=== PATIENT | male | born 1975 | race Caucasian/White ===

== ENCOUNTER 2022-03-23 02:38 | Emergency (ER) | payer MEDICAID, SELFPAY ==
--- OUTSIDE RECORDS SUMMARY | 2022-03-23 03:27 | XMS_ITS | Continuity of Care Document ---
:1975 Author Organization [facility] Address [address] [place] [address]- Care Team Providers Name Role Phone Rory BARFIELD, Jenny Primary Care Physician Encounter [facility] [place] Date(s): 07/05/20 - 07/06/[address] [address]- Encounter Diagnosis Chest pain (Final) - 07/05/20 Discharge Disposition: A-D/C Home Attending Physician: Chyna Syed DO Admitting Physician: Chyna Syed DO Referring Physician: Not on Staff, Referring MD Allergies, Adverse Reactions, Alerts Substance Reaction Severity Status NKA Active Medications Suboxone 8 mg-2 mg sublingual film Sublingual, Daily, 0 Refills, Maintenance, 03/01/19 16:42:26 EDT Start Date: 03/01/19 Status: Ordered Results Orders for Microbiology Reports Name Date Blood Culture 07/05/20 Blood Culture 07/05/20 Blood Culture #2 07/05/20 Microbiology Reports TEST:Blood Culture STATUS:Unauthenticated BODY SITE: SOURCE:Blood COLLECTED DATE/TIME:07/05/20 7:25 PMBlood Culture SPECIMEN DESCRIPTION : BLOOD NO SITE SPECIAL REQUESTS : NONE CULTURE : NO GROWTH AFTER 24 HOURS REPORT STATUS : PRELIMINARY REPORT TEST:Blood Culture, Second Order STATUS:Unauthenticated BODY SITE: SOURCE:Blood COLLECTED DATE/TIME:07/05/20 6:20 PMBlood Culture, Second Order SPECIMEN DESCRIPTION : BLOOD LA SPECIAL REQUESTS : NONE CULTURE : NO GROWTH AFTER 24 HOURS REPORT STATUS : PRELIMINARY REPORT TEST:Blood Culture STATUS:Unauthenticated BODY SITE: SOURCE:Blood COLLECTED DATE/TIME:07/05/20 5:56 PMBlood Culture SPECIMEN DESCRIPTION : BLOOD RA SPECIAL REQUESTS : NONE CULTURE : NO GROWTH AFTER 24 HOURS REPORT STATUS : PRELIMINARY REPORT Radiology Reports Exam Date Time Procedure Performing Provider Status 07/05/20 6:32 PM Chest 2 Views Frontal and Lat Trudi Kirkland; Auth (Verified) Notes:(Chest 2 Views Frontal and Lat) Reason For Exam: Shortness of Breath, Fever;Other:RESULT: Chest 2 Views Frontal and Lat Chest 2 Views Frontal and Lat Hx of Present Illness: Left anterior chest pain with radiation to neck and left arm. Patient report onset of pain this morning. Patient reports paramedics arrived and ECG obtained. Patient declined transport to hospital.; Reason: Other:; Shortness of Breath, Fever; Clinical Question(s): Pneumonia COMPARISON: None. FINDINGS: LINES AND TUBES: None. LUNGS AND PLEURA: Clear lungs. Normal pulmonary vascularity. No pleural effusion. No pneumothorax. HEART, MEDIASTINUM AND MARIETTA: Heart is normal in size. Normal upper mediastinal and hilar contour. BONES AND SOFT TISSUES: No acute abnormality. IMPRESSION: No acute abnormality. WSN: [id number] Ordering Physician: Perez Rodas V Dictated By: Kashif Deleon MD Dictated Date/Time: 07/05/20 6:34 pm Reviewed By: Kashif Deleon MD Signed By: Kashif Deleon MD Signed Date/Time: 07/05/20 6:34 pm Transcribed By: ALIYA Transcribed Date/Time: 07/05/20 6:33 pm Vital Signs Most recent to oldest 1 2 3 [Reference Range]: Oxygen Saturation [94-100 %] 97 % 96 % 100 % (07/06/20 12:19 AM) (07/05/20 4:08 PM) (07/05/20 4: 03 PM) Pulse Rate [55-90 bpm] 48 bpm 58 bpm 70 bpm *L* (07/05/20 4:08 PM) (07/05/20 4:03 PM) (07/06/20 12:19 AM) Blood Pressure [90-138/55-84 114/72 mm Hg 142/82 mm Hg mm Hg] (07/06/20 12:19 AM) *H* (07/05/20 4:08 PM) Respiratory Rate [16-30 20 br/min 21 br/min 18 br/mi n br/min] (07/06/20 12:19 AM) (07/05/20 4:08 PM) (07/05/20 4: 03 PM) Temperature [96.8-100.4 DegF] 97.5 DegF 97.7 DegF (07/06/20 12:19 AM) (07/05/20 4:08 PM) Mode of Delivery (Oxygen) Room air Room air (07/06/20 12:19 AM) (07/05/20 4:08 PM) Blood pressure sites Arm, right (07/06/20 12:19 AM) Temperature Route Oral Oral (07/06/20 12:19 AM) (07/05/20 4:08 PM) Social History Social History Type Response Smoking Status Never (less than 100 in life time) entered on: 03/01/19 Sex
--- OUTSIDE RECORDS SUMMARY | 2022-03-23 03:27 | XMS_ITS | Continuity of Care Document ---
:1975 Author Organization [facility] Address [address] [place] [id number]- Care Team Providers Name Role Phone Rory BARFIELD, Jenny Primary Care Physician Encounter [facility] [place] Date(s): 07/11/20 - 07/11/[address] [address]- Encounter Diagnosis Opiate use (Final) - 07/11/20 Cocaine use (Final) - 07/11/20 Discharge Disposition: A-D/C Home Attending Physician: Abilio Turner MD Admitting Physician: Abilio Turner MD Referring Physician: Not on Staff, Referring MD Allergies, Adverse Reactions, Alerts Substance Reaction Severity Status NKA Active Medications Suboxone 8 mg-2 mg sublingual film Sublingual, Daily, 0 Refills, Maintenance, 03/01/19 16:42:26 EDT Start Date: 03/01/19 Status: Ordered Vital Signs Most recent to oldest 1 2 3 [Reference Range]: Oxygen Saturation [94-100 %] 97 % 95 % 99 % (07/11/20 1:08 PM) (07/11/20 10:35 AM) (07/11/20 9: 04 AM) Pulse Rate [55-90 bpm] 67 bpm 50 bpm 69 bpm (07/11/20 1:08 PM) *L* (07/11/20 9:04 AM) (07/11/20 10:35 AM) Blood Pressure [90-138/55-84 114/80 mm Hg 121/76 mm Hg 138 /74 mm Hg mm Hg] (07/11/20 1:08 PM) (07/11/20 10:35 AM) (07/11/20 9: 04 AM) Respiratory Rate [16-30 16 br/min 14 br/min 18 br/mi n br/min] (07/11/20 1:08 PM) *L* (07/11/20 9:04 AM) (07/11/20 10:35 AM) Temperature [96.8-100.4 DegF] 98.9 DegF (07/11/20 7:20 AM) Mode of Delivery (Oxygen) Room air Room air Room a ir (07/11/20 1:08 PM) (07/11/20 10:35 AM) (07/11/20 9: 04 AM) Blood pressure sites Arm, left Arm, left Arm, left (07/11/20 1:08 PM) (07/11/20 10:35 AM) (07/11/20 9: 04 AM) Temperature Route Oral (07/11/20 7:20 AM) Social History Social History Type Response Smoking Status Never (less than 100 in life time) entered on: 03/01/19 Sex
--- OUTSIDE RECORDS SUMMARY | 2022-03-23 03:27 | XMS_ITS | Continuity of Care Document ---
:1975 Author Organization [facility] Address [address] [place] [address]- Care Team Providers Name Role Phone Not on Staff, PCP Primary Care Physician Unavailable Encounter [facility] [place] Date(s): 12/05/20 - 12/06/[address] [address]- Discharge Disposition: A-D/C Longterm, Long Term, or Care Home Fac Attending Physician: Anand Moralez DO Admitting Physician: Anand Moralez DO Referring Physician: Not on Staff, Referring MD Allergies, Adverse Reactions, Alerts Substance Reaction Severity Status NKA Active Medications Suboxone 8 mg-2 mg sublingual film Sublingual, Daily, 0 Refills, Maintenance, 03/01/19 16:42:26 EDT Start Date: 03/01/19 Status: Ordered Results Radiology Reports Exam Date Time Procedure Performing Provider Status 12/05/20 11:40 PM Wrist Comp Min 3 Views Right Malvin Aguiar (Verified) Notes:(Wrist Comp Min 3 Views Right) Reason For Exam: Decreased ROMRESULT: Wrist Comp Min 3 Views Right Wrist Comp Min 3 Views Right Reason: Decreased ROM; Clinical Question(s): Fracture COMPARISON: None. FINDINGS: Healed deformity is seen of the fifth metacarpal distal metaphysis. Well- corticated ossific densities are seen on the dorsum of the wrist, likely sequela of prior trauma. No acute displaced fracture isseen. There is mild degenerative change of the first metacarpophalangeal and first interphalangeal joints. Mild dorsal soft tissue swelling is seen in the wrist. IMPRESSION: Mild dorsal soft tissue swelling in the wrist with no acute fracture. WSN: [id number] Ordering Physician: Deonna Mueller MD Dictated By: Scarlett Joseph MD Dictated Date/Time: 12/05/20 11:53 p Reviewed By: Scarlett Joseph MD Signed By: Scarlett Joseph MD Signed Date/Time: 12/05/20 11:53 pm Transcribed By: ALIYA Transcribed Date/Time: 12/05/20 11:52 pm Vital Signs Most recent to oldest 1 2 3 [Reference Range]: Oxygen Saturation [94-100 %] 100 % 97 % 100 % (12/06/20 9:17 PM) (12/06/20 5:59 PM) (12/06/20 2:4 8 PM) Pulse Rate [55-90 bpm] 87 bpm 53 bpm 50 bpm (12/06/20 9:17 PM) *L* *L* (12/06/20 5:59 PM) (12/06/20 2:48 PM) Blood Pressure [90-138/55-84 mm 121/87 mm Hg 126/88 mm Hg 122/77 mm Hg Hg] (12/06/20 9:17 PM) (12/06/20 5:59 PM) (12/06/20 2:4 8 PM) Respiratory Rate [16-30 br/min] 20 br/min 18 br/min 16 br/min (12/06/20 9:17 PM) (12/06/20 5:59 PM) (12/06/20 2:4 8 PM) Temperature [96.8-100.4 DegF] 98.7 DegF 97.6 DegF 97 .4 DegF (12/06/20 9:17 PM) (12/06/20 5:59 PM) (12/06/20 2:4 8 PM) Mode of Delivery (Oxygen) Room air Room air Room a ir (12/06/20 9:17 PM) (12/06/20 5:59 PM) (12/06/20 9:4 8 AM) Blood pressure sites Arm, left Arm, right Arm, right (12/06/20 9:17 PM) (12/06/20 5:59 PM) (12/06/20 2:4 8 PM) Temperature Route Oral Oral Oral (12/06/20 9:17 PM) (12/06/20 5:59 PM) (12/06/20 2:4 8 PM) Social History Social History Type Response Smoking Status Never (less than 100 in life time) entered on: 03/01/19 Sex
== END 2022-03-23 05:37 | disposition left against medical advice (07) ==
PROVIDERS: Emergency Provider Emergency Medicine
DX: Z04.9 Encounter for examination and observation for unspecified reason (principal)

== ENCOUNTER 2022-04-05 20:04 | Emergency (ER) | payer MEDICAID, SELFPAY ==
[2022-04-05 20:20] VITALS: BP 117/98; BP 143/91; PULSE 80; PULSE 95; RESP 12; TEMP 36.4; O2SAT 94; O2SAT 96; BMI 28.0
--- NOTE | 2022-04-05 20:26 | ED.GENADULT ---
HPI - General Adult General Chief complaint: Overdose Stated complaint: etoh Time Seen by Provider: 04/05/22 20:21 Source: patient Limitations: no limitations History of Present Illness HPI narrative: This is a 46-year-old male who alleges that he had pulled over in his car to make a phone call. Police found him to be intoxicated and he came into the hospital by ambulance. The patient admits having had a beer, also a 1 on 1 of cocaine and heroin. He denies any complaints. He denies any headache, chest pain, shortness of breath, abdominal pain, nausea vomiting. Related Data Previous Rx's Medication Instructions Recorded naloxone 4 mg/actuation nasal 4 mg intranasal Q2M PRN opioid 04/06/22 spray (Narcan) overdose #2 ea Allergies Allergy/AdvReac Type Severity Reaction Status Date / Time No Known Allergies Allergy Unverified 03/03/20 14:57 Review of Systems Constitutional: Constitutional: Reports as per HPI Eyes: Eyes: Reports no additional eye complaints ENT: Reports system reviewed and no additional complaints, except as documented Cardiovascular: Cardiovascular: Reports no additional cardiovascular complaints Respiratory: Respiratory: Reports no additional respiratory complaints Gastrointestinal: Gastrointestinal: Reports no additional gastrointestinal complaints [facility] Social History Social History Advance Directives: No Advance Directives Information Provided: No Physical Exam ED Vital Signs: Vital Signs - 24 hr 04/05/22 20:20 Temperature 97.5 F Pulse Rate 95 Respiratory Rate 12 Blood Pressure 143/91 H Pulse Oximetry 96 Oxygen Delivery Method Room Air BMI result Body Mass Index 28.0 Const Other: Patient initially mildly somnolent appearing but is readily arousable to voice, answers questions appropriately, makes eye contact. Pupils not pinpoint General: no acute distress Orientation/consciousness: patient oriented x3 HENMT Head: Yes normal to inspection General nose exam: Normal external nose present Mouth: moist mucous membranes Throat: Yes posterior oropharynx normal, Yes tonsils normal and Yes uvula midline Eyes Eyelids: Yes eyelids normal Conjunctivae: conjunctivae normal Pupils: Equal, round and reactive pupils present Neck Neck: Yes supple Resp Effort & Inspection: normal respiratory effort Auscultation: clear to auscultation bilaterally Cardio Rate: regular rate Rhythm: regular rhythm Heart sounds: S1 normal heart sound present, S2 normal heart sound present, no gallops, no murmurs and no rubs GI Inspection: No distended Palpation (GI): Soft to palpation and nontender Auscultation: normal bowel sounds Skin General skin exam: other (Warm and dry) Neuro General: patient oriented x3 and CN's II-XI intact bilaterally Cranial nerves: Yes Equal, round and reactive pupils present Extrem General: Yes no pedal edema Psych Affect: normal affect Attitude: cooperative Course Course Course Narrative: Patient was observed in the ED for about 4 hours. His vital signs remained stable. He had no evidence of respiratory depression. He was cooperative. He stated he fully able to call somebody for ride, or he can walk home. Patient is being prescribed Narcan, though he did not actually have any evidence of narcotic overdose, appears to have polysubstance abuse Discharge Plan Discharge Clinical Impression: Substance abuse Patient Disposition: Home, Self-Care Instructions: Polysubstance Abuse (ED) Additional Instructions: Refrain from mixing multiple substances such as cocaine, heroin, and alcohol, as the effects can be unpredictable, and can cause . Pursue treatment at an outpatient drug detox facility. Prescriptions: New naloxone [Narcan] 4 mg/actuation spray,non-aerosol 4 mg intranasal Q2M PRN (Reason: opioid overdose) Qty: 2 0RF Rx Instructions: spray 1 dose into ONE nostril; alternate nostrils w each dose until help arrives
== END 2022-04-05 20:40 | disposition home or self-care (01) ==
PROVIDERS: Emergency Provider Emergency Medicine
DX: T40.1X1A Poisoning by heroin, accidental (unintentional), initial encounter (principal); Y92.9 Unspecified place or not applicable; F14.10 Cocaine abuse, uncomplicated; Z71.51 Drug abuse counseling and surveillance of drug abuser
CPT/HCPCS: 99281

== ENCOUNTER 2022-04-07 19:30 | Emergency (ER) | payer MEDICAID, SELFPAY ==
[2022-04-07 19:41] VITALS: BP 138/80; PULSE 120; O2SAT 95
[2022-04-07 19:43] VITALS: BMI 28.0
[2022-04-07 19:53] VITALS: BP 139/94; PULSE 116; RESP 20; O2SAT 94
--- NOTE | 2022-04-07 19:53 | ED.GENADULT ---
HPI - General Adult General Chief complaint: ETOH/Substance Use Stated complaint: substance abuse/ ETOH Time Seen by Provider: 04/07/22 19:42 Source: patient and EMS Mode of arrival: EMS Limitations: no limitations History of Present Illness HPI narrative: This is a 46-year-old male presenting to the emergency department after using drugs and alcohol. Patient tells me he was pulled over by the police after he used heroin, cocaine and was drinking and driving and they told him to come into the emergency department for evaluation and treatment. Patient offers no medical complaints. He tells me he was just trying to get high, this was not a suicide attempt. He tells me he used 1 bag of heroin, injected. He denies any SI, HI. Denies tobacco. Denies visual, auditory and tactile hallucinations. Denies medical complaints at this time. Narcan not given Related Data Previous Rx's Medication Instructions Recorded naloxone 4 mg/actuation nasal 4 mg intranasal Q2M PRN opioid 04/06/22 spray (Narcan) overdose #2 ea Allergies Allergy/AdvReac Type Severity Reaction Status Date / Time No Known Allergies Allergy Unverified 03/03/20 14:57 Review of Systems Review of Systems: Constitutional : No Fever, No Chills ENT/Mouth : No sore throat, No Rhinorrhea Eyes: No Eye Pain, No Swelling, No Redness Cardiovascular : No Chest Pain, No SOB Respiratory : No Cough, No Sputum Gastrointestinal : No Nausea, No Vomiting, No Diarrhea, No abdominal Pain Genitourinary : No Dysuria, No Hematuria Musculoskeletal : No joint pain, No Myalgias, No Joint Swelling Skin : No Skin Lesions, No rash Neuro : No Weakness, No Numbness Psych : No Anxiety, No Depression, No SI/HI/AH/VH All other systems reviewed and are negative Yes all other systems are reviewed and are negative [facility]LY [facility] Past Medical History Attestation statement: The following information was validated with the patient. Source: old records reviewed and nursing notes reviewed Social History Social History Advance Directives: No Advance Directives Information Provided: No Physical Exam ED Vital Signs: Vital Signs - 24 hr 04/07/22 19:53 Pulse Rate 116 H Respiratory Rate 20 Blood Pressure 139/94 H Pulse Oximetry 94 Oxygen Delivery Method Room Air BMI result Body Mass Index 28.0 vss Appearance: Alert.? Oriented X3.? No acute distress.? Head: Normocephalic, atraumatic, no step-offs or deformities Eyes: Pupils equal, round and reactive to light.? ENT: Pharynx normal.? Neck: Normal inspection.? Neck supple.? CVS: Normal heart rate and rhythm.? Pulses normal.? Respiratory: No respiratory distress.? Breath sounds normal.? Abdomen: Soft and nontender.? Skin: Skin warm and dry.? Normal skin color.? Normal skin turgor.? Extremities: No lower extremity edema.? No calf ttp. 5/5 strength to bilateral upper and lower extremities Neuro: Oriented X 3.? No motor deficit.? No sensory deficit. CN 2-12 intact Course Reevaluation(s) Reevaluation #1: Patient refused urine, labs. I got informed by registration that patient left security called, patient wasnt found. Calling PD to ensure patient did not have an IV. Time: 20:22 Reevaluation #2: On phone with [employer] they will call action to see if patient had IV Time: 20:24 Medical Decision Making [facility] Narrative Medical decision making narrative: 1928 46 year old presents with polysubstance abuse, alcohol intoxication. Was pulled over by the police and advised to come in to seek help. Denies SI and HI. Physical examination benign. Patient awake, alert, oriented x4. Appears comfortable with stable vitals. Likely accidental drug overdose. Patient without medical complaints. At this time will put in a substance use disorder evaluation. Medical Records Medical records reviewed: Yes I reviewed the patient's medical records. Lab Data Lab results reviewed: Yes I reviewed the patient's lab results. Critical Care Time Critical Care Time Critical Care Time: No Discharge Plan Discharge Clinical Impression: Alcoholic intoxication, Polysubstance abuse Patient Disposition: Elopement Prescriptions: No Action naloxone [Narcan] 4 mg/actuation spray,non-aerosol 4 mg intranasal Q2M PRN (Reason: opioid overdose) Qty: 2 0RF Rx Instructions: spray 1 dose into ONE nostril; alternate nostrils w each dose until help arrives
--- OUTSIDE RECORDS SUMMARY | 2022-04-07 19:55 | XMS_ITS ---
:1975 Author Organization [facility] Address [address], [place] [id number] Care Team Providers Name Role Phone Jessica Valadez Unavailable Unavailable PROBLEMS Type Condition ICD9-CM Code QKR38-VA Code Onset Condition SNO MED Code Dates Status Problem Body mass index Z68.27 Active 1628 62720 (BMI) 27.0-27.9, adult Problem Homelessness Z59.0 Active 1172145 0 Problem Prediabetes R73.03 Active 45106919 2 Problem Opioid abuse with F11.120 Active 56 95925 intoxication, uncomplicated Problem Abnormal finding R79.9 Active 166 033255 of blood chemistry, unspecified Problem Cocaine abuse with F14.19 Active 4 94617584 unspecified cocaine-induced disorder Problem Hyperesthesia R20.3 Active 548237 09 Problem Paresthesia of R20.2 Active 40785 005 skin Problem Nicotine F17.220 Active 551005493 dependence, chewing tobacco, uncomplicated Problem Dysthymic disorder F34.1 Active 7 5142629 Problem Opioid abuse, F11.10 Active 524687 1 uncomplicated Problem Pain in right leg M79.604 Active 28 1718909 Problem Chronic viral B18.2 Active 714028 006 hepatitis C Problem Nonspecific R74.0 Active 31967770 2 elevation of levels of transaminase and lactic acid dehydrogenase [LDH] Problem Essential I10 03 October, Active 63037273 (primary) 2018 hypertension ALLERGIES No Known Allergies ENCOUNTERS Encounter Location Date Diagnosis [address] Jun, Other chest pain R07.89 ; [place], [place] Opioid abuse wit h 285923500 intoxication, uncomplicated F1 1.120 ; Encounter for sc reening for infectious a nd parasitic diseas es, unspecified Z11. 9 ; Immunization not carried out because of p atient refusal Z28.21 ; Nicotine dependence, chew ing tobacco, uncompl icated F17.220 and Home lessness Z59.[address] Jun, [place], [place] [id number] [address] Jun, [place], [place] [id number] [address] Jun, [place], [place] [id number] [address] Jun, [place], [place] [id number] [address] Jun, [place], [place] [id number] [facility] [address] [place] [address] May, Unspecified a bnormal [facility] findings in urine R82.90 [place], and [place] [id number] unspecified Z71. [address] May, Dysuri a R30.0 ; [place], [place] Immunization not carried [id number] out because of p atient refusal Z28.21 a nd Encounter for sc reening for infectious a nd parasitic diseas es, unspecified Z11. [address] Apr, [place], [place] [id number] [address] Feb, Encoun ter for general [place] adult medical ex amination [id number] without abnormal findings Z00.00 ; Opioid abuse, uncomplicated F1 1.10 ; Encounter for sc reening for infectious a nd parasitic diseas es, unspecified Z11. 9 ; Encounter for immunization Z23 ; Encounter for ge neral adult medical ex amination with abnormal fi ndings Z00.01 ; Encount er for screening for ma lignant neoplasm of pros sanford Z12.[address] for screening for di abetes mellitus Z13.[address] Feb, [place], [place] [id number] [facility] [address] [place] [address] Jan, Opioid abuse, [facility] uncomplicate d F11.10 and [place] [place] [facility] , unspecified [place] [id number] Z71.[address] 14 Jan, 2020 [place], [place] [id number] [address] 08 Nov, 2019 Gonoco ccal infection of [place] lower genitourin dillon [id number] tract, unspecifi ed A54.[address] Nov, [place], [place] [id number] [address] Nov, [place], [place] [id number] [address] October, High r isk heterosexual [place] behavior Z72.51 ; Opioid 521944046 abuse, uncomplic ated F11.10 and Chron ic viral hepatitis C B18. [address] October, [place] [id number] [address] Mar, [place] [id number] [facility] [address] [place] [address] 17 Feb, 2019 Hom[place] [id number] [address] Aug, [place] [id number] [address] Jul, Other fatigue R53.83 ; [place] Reyna Snoring R06.83 ; Nicotine 144414639 dependence, chew ing tobacco, uncompl icated F17.220 ; Immuni zation not carried out because of patient refus al Z28.21 ; Other polyuria R35.8 ; Chronic viral he patitis C B18.2 ; Shortnes s of breath R06.02 an d Dysthymic disord er F34.[address] Jul, [place] [id number] [address] Jun, [place] [id number] [address] Apr, [place] [id number] [address] Apr, [place] [id number] [address] Apr, [place] [id number] [address] Apr, Parest hesia of skin R20.2 [place] ; Encounter for general 140978[address] adult medical ex amination with abnormal fi ndings Z00.01 ; Localiz ed swelling, mass a nd lump, left lower limb R22.42 and Immunization not carried out ileana use of patient refusal Z28.[address] Mar, Locali zed edema R60.0 [place], [place] [id number] [address] 07 Feb, 2018 [place], [place] [id number] [address] Dec, [place], [place] [id number] [address] Nov, [place], [place] [id number] [address] Nov, [place], [place] [id number] [address] October, Opioid abuse, [place] uncomplicated F1 1.10 ; [address] Nonspecific elev ation of levels of transa minase and lactic acid dehydrogenase [L DH] R74.0 ; Chronic viral hepatitis C B18.2 and Enco unter for immunization Z23 [address] October, [place], [place] [id number] [address] October, Nonspe cific elevation of [place] levels of transa minase 66[address]1173 and lactic acid dehydrogenase [L DH] R74.[address] October, [place], [place] [id number] [address] October, Nonspe cific elevation of [place] levels of transa minase 589795200 and lactic acid dehydrogenase [L DH] R74.0 ; Chronic viral hepatitis C B18.2 ; Essent ial (primary) hypert ension I10 ; Encounter for immunization Z23 and Opioid abuse, uncomplicated F1 1.[address] Aug, [place], [place] [id number] [address] May, [place], [place] [id number] [address] May, Nonspe cific elevation of [place] levels of transa minase 474760997 and lactic acid dehydrogenase [L DH] R74.0 and Chronic nick l hepatitis C B18. [address] May, [place], [place] [id number] [address] May, Pain i n right leg M79.604 [place] ; Chronic viral hepatitis 194919766 C B18.2 ; Nonspe cific elevation of lev els of transaminase and lactic acid dehydrogena se [LDH] R74.0 ; Elevated blood-pressure r eading, without diagnosi s of hypertension R03 .0 ; Opioid abuse, uncomplicated F1 1.10 and Cocaine abuse wi th unspecified cocaine-induced disorder F14.[address] Nov, Encoun ter for general [place], [place] adult medical ex amination [phone] with abnormal fi ndings Z00.01 ; Hyperes thesia R20.3 ; Opioid a buse, uncomplicated F1 1.10 ; Abnormal finding of blood chemistry, unspe cified R79.9 ; Encounte r for immunization Z23 and Nicotine depende nce, chewing tobacco, uncomplicated F1 7.[address] October, Unspec ified viral [place] hepatitis C with out [id number] hepatic coma B19 .20 ; Nicotine depende nce, chewing tobacco, uncomplicated F1 7.220 and Opioid abuse, uncomplicated F1 1.10 IMMUNIZATIONS Vaccine Route Administration Date Status Tdap IM Intramuscular Mar 16, 2020 Administered ceftriaxone 250 mg IM IM Intramuscular November 23, 2019 Administe red PPSV 23 Unknown Feb 27, 2017 Administered Hepatitis B (20 or more) IM Intramuscular November 13, 2017 Admini stered Hepatitis A IM Intramuscular October 17, 2017 Administered Prevnar 13 Unknown Feb 27, 2017 Administered ceftriaxone 250 mg IM IM Intramuscular Jun 02, 2020 Administe red Hepatitis B (20 or more) IM Intramuscular Jan 30, 2017 Admini stered Hepatitis A Unknown Jan 30, 2017 Administered Hepatitis B (20 or more) IM Intramuscular November 15, 2016 Admini stered SOCIAL HISTORY Qualifiers Date Former Smoker REASON FOR REFERRAL Reason Rt arm numbess I called the pt to follow up and see what was the best time for t he appt. as this referal was done in November. Per the p t he is better and would NOT like the referral for NO ES at this time... 06/07/17 GARCIA Declines referral at this time/GK 06/07/17 Referral Organization [facility] Referring Provider First Name Jessica Referring Provider Last Name Rory Referring Provider Specialty Family Practice Referring Provider Referring Provider email [email or web address] Referred Provider [facility] Reason [facility] Abd U/S [address] [place], [place] [phone] fax: [phone] req faxed/ Pt aware of appt, NPO after MN and rm [phone] [place] did he go to this appt? Pt n o show on 06/26/17 //SOLOMON Melton---Needs new appt f or abd U/S/GK (Details)nothing to eat or drink after midnight appt booked 09/20/14 at 11:00a m order fax [phone] Pt is aware of appt details// Referral Organization [facility] Referring Provider First Name Jessica Referring Provider Last Name Rory Referring Provider Specialty Family Practice Referring Provider Referring Provider email [email or web address] Referred Provider [facility], Radiology Referred Provider Specialty Radiology Referral Appointment Date 2017-09-20 Reason [facility] Liver clinic [address] [place] LT use of Testosterone/Opiates. + hx u ntreatd hep C with LFTs AST: 170/ALT: 270. Please ev aluate and treat Appt booked for pt on 02/26/18 at 12:[address] Plata at [address] [place] Notes f ax to [phone] Sent a letter out to pt adress we d id not get a hols of pt by phone and left several voice mails// Referral Organization [facility] Referring Provider First Name Jessica Referring Provider Last Name Rory Referring Provider Specialty Family Practice Referring Provider Referring Provider email [email or web address] Referred Provider [facility], Liver Clinic Referred Provider Specialty Gastroenterology Referral Appointment Date 2018-02-26 Reason [facility] jd johnson stating pt is going 01/02/18 and they were looking for a mass health referral Referred Provider , [facility] Referred Provider Specialty Physical Medicine and Reha bilitation Referral Appointment Date 2018-01-06 Reason Sleep apea testing [place] S leepiness Scale : score 24 Fax all paper work to waiting on notes to get reviewed to then get appt details//SOLOMON Called for the second time and no a ppt has been made yet they will work on it today 9 Appt booked for 10/06/18 at 4:15pm they stated pt is aware they wont book with speaking to pt//KL Pt did s how and has a sleep study on 10/19 notes requested on //SOLOMON notes in alvaro folder. Referral Organization [facility] Referring Provider First Name Jessica Referring Provider Last Name Rory Referring Provider Specialty Family Practice Referring Provider Referring Provider email [email or web address] Referred Provider Sleep Medicine Services, [facility]. Referral Appointment Date 2018-10-06 FUNCTIONAL STATUS PLAN OF CARE Activity Details Referral Rt arm numbess I called the pt to follow up and see what was the best time for the appt. as this r eferal was done in November. Per the pt he is better and would NOT like th e referral for NOES at this time... 06/07/17 JF Declines referral at this time/ 06/07/17 , [facility] New Referral 2017-09-20, [facility] Ab d U/S [address] [place], [place] [phone] fax: [phone] req faxed/ Pt aware of appt, NPO after MN and rm 160 175 [facility] did h e go to this appt? Pt no show on 06/26/17 //SOLOMON Melton---Needs new a ppt for abd U/S/GK (Details)nothing to eat or drink after midnig ht appt booked 09/20/14 at 11:00am order fax [phone] Pt is aware of a ppt details//SOLOMON, Radiology [facility] Referral 2018-02-26, [facility] Liver clinic [address] [facility].[place] LT use of Testosterone/Opiates. + hx u ntreatd hep C with LFTs AST: 170/ALT: 270. Please evaluate and treat Ap pt booked for pt on 02/26/18 at 12:[address] Plata at [address] [place] Notes fax to [phone] Sent a letter out to pt adress we did not get a hols of pt by phone and left several voice mails//SOLOMON, Liver Clini c [facility] Referral 2018-01-06, [facility] called stating pt is going 01/02/18 and they were looking for a mass health referral, [facility] Referral 2018-10-06, Sleep apea testi ng [place] Sleepiness Scale : score 24 Fax all paper work to [phone] waiting on notes to get reviewed to then get appt details//KL Called for the second time and no appt has been made yet they will work on i t today 08/26/18 Appt booked for 10/06/18 at 4:15pm they stated pt is kianna re they wont book with speaking to pt//KL Pt did show and has a sleep study on 10/19 notes requested on 10/07/18//SOLOMON notes in alvaro folder., [facility]. Sleep Medicine Services Future Test URINALYSIS [id number] Pending Test CHLAMYDIA / GC DNA W RFLX Pending Test CR Femur =>2 Views LT Pending Test A1c - [facility] Pending Test Sed Rate Pending Test B12 level - [facility] Pending Test Uric acid Pending Test Rheumatoid factor Pending Test X ray : Spines, cervical Pending Test LO (Antinuclear Antibody) S creen -[facility] Pending Test Folic Acid - [facility] Pending Test Hep C viral load - [facility] Pending Test Quantiferon Gold VITAL SIGNS Height 68 in 2020-07-13 Weight 180 lbs 2020-07-13 BMI 27.37 kg/m2 2020-07-13 Oximetry 99 2020-07-13 Temperature 97.7 degrees Fahrenheit 2020-07-13 Blood pressure systolic 134 2020-07-13 Blood pressure diastolic 79 2020-07-13 MEDICATIONS Medication Instructions Dosage Frequency Start End Duration Statu s Date Date hydroCHLOROthiazide orally once a 1 cap(s) 24h October, da y(s) Not-Taki 12.5 mg day 2017 ng Suboxone 8 mg-2 mg sublingually 1 24h Active once a day film(s) Narcan 4 mg/0.1 mL intranasally 4 mg 06 May, 1 dose(s ) Active once 2018 PROCEDURES Procedure Date Ordered Result Body Site CLINIC VST/ENCOUNTER ALL-INCLUSIVE October 31, 2016 CLINIC VST/ENCOUNTER ALL-INCLUSIVE Mar 16, 2020 CLINIC VST/ENCOUNTER ALL-INCLUSIVE Mar 19, 2018 CLINIC VST/ENCOUNTER ALL-INCLUSIVE November 13, 2017 NFAC (RN, AUDITOR/QUALITY, PA)HC PRO PHONE CALL 11-20 MIN Feb 03, 2020 Hepatitis B (20 or more) November 13, 2017 THER/PROPH/DIAG INJ, SC/IM November 23, 2019 VENIPUNCT, ROUTINE* Jun 07, 2017 IM 5OOMG ROCEPHIN Jun 02, 2020 NFAC (RN, AUDITOR/QUALITY, PA)HC PRO PHONE CALL 5-10 MIN Jun 03, 2020 CLINIC VST/ENCOUNTER ALL-INCLUSIVE November 15, 2016 VENIPUNCT, ROUTINE* Apr 17, 2018 MEASURE BLOOD OXYGEN LEVEL October 31, 2016 CLINIC VST/ENCOUNTER ALL-INCLUSIVE Aug 06, 2018 VENIPUNCT, ROUTINE* November 12, 2019 TOBACCO USE, SMOKING, ASSESS Aug 06, 2018 TDAP VACCINE Mar 16, 2020 CLINIC VST/ENCOUNTER ALL-INCLUSIVE Jun 02, 2020 THER/PROPH/DIAG INJ, SC/IM Jun 02, 2020 CLINIC VST/ENCOUNTER ALL-INCLUSIVE November 23, 2019 Obsolete : IMMUNIZATION ADMIN November 15, 2016 OCCULT BLOOD, FECES, SINGLE Aug 06, 2018 TOBACCO USE, NON-SMOKING Aug 06, 2018 CLINIC VST/ENCOUNTER ALL-INCLUSIVE Jul 13, 2020 VENIPUNCT, ROUTINE* Mar 16, 2020 VENIPUNCT, ROUTINE* Jun 02, 2020 CURRENT TOBACCO SMOKER November 15, 2016 SPECIMEN HANDLING Mar 16, 2020 Comprehensive Metabolic Panel October 31, 2016 SPECIMEN HANDLING November 13, 2017 SPECIMEN HANDLING Aug 06, 2018 VENIPUNCT, ROUTINE* Aug 06, 2018 TOBACCO USE, SMOKING, ASSESS November 15, 2016 IM 5OOMG ROCEPHIN November 23, 2019 ADMIN SINGLE VACC November 13, 2017 CURRENT TOBACCO SMOKER October 31, 2016 CLINIC VST/ENCOUNTER ALL-INCLUSIVE Apr 17, 2018 VENIPUNCT, ROUTINE* November 13, 2017 CLINIC VST/ENCOUNTER ALL-INCLUSIVE November 12, 2019 CLINIC VST/ENCOUNTER ALL-INCLUSIVE October 17, 2017 SPECIMEN HANDLING Jun 02, 2020 CLINIC VST/ENCOUNTER ALL-INCLUSIVE Jun 06, 2017 Hepatitis A October 17, 2017 TOBACCO USE, SMOKING, ASSESS October 31, 2016 SPECIMEN HANDLING November 12, 2019 ADMIN SINGLE VACC Mar 16, 2020 PRSC RX ORAL NONCHEMOTHAPEUTIC NOS Jun 02, 2020 SPECIMEN HANDLING Apr 17, 2018 Hepatitis B November 15, 2016 ADMIN SINGLE VACC October 17, 2017 SPECIMEN HANDLING Jun 07, 2017 RESULTS Name Result Date Reference Range CHLAMYDIA DNA URINE 2020-06-02 CHLAMYDIA DNA URINE NEGATIVE NEGATIVE GC DNA URINE 2020-06-02 GC DNA URINE POSITIVE NEGATIVE HIV 1 AND 2 ANTIBODY SCREEN 2020-06-02 HIV 1 AND 2 SCREEN NEGATIVE NEGATIVE TREPONEMAL AB 2020-06-02 TREPONEMAL AB NEGATIVE NEGATIVE TRICHOMONAS 2020-06-02 TRICHOMONAS NONE SEEN NEGATIVE URINALYSIS 2020-06-02 BACTERIA, URINE LIGHT NEGATIVE WBC, URINE 158 0-4 BILIRUBIN, URINE NEGATIVE NEGATIVE BLOOD, URINE NEGATIVE NEGATIVE HYALINE CAST, URINE 10 0-3 EPITH CELLS, URINE 1 0-60 GLUCOSE, (UA) NEGATIVE NEGATIVE KETONE, URINE NEGATIVE NEGATIVE LEUKOCYTE ESTERASE, URINE MODERATE NEGATI VE NITRITE, URINE NEGATIVE NEGATIVE PH, URINE 7.0 5.0-8.0 PROTEIN, URINE TRACE <= TRACE RBC, URINE 4 0-4 SPECIFIC GRAVITY, URINE 1.024 1.003-1. 030 UROBILINOGEN, URINE 1.0 0.2-1.0 URINE CULTURE 2020-06-02 URINE CULTURE No growth PROSTATIC SPECIFIC ANTIGEN 2020-03-16 PROSTATIC SPECIFIC ANTIGEN 0.4 0.0-4 .0 GLYCOHEMOGLOBIN PROFILE 2020-03-16 ESTIMATED AVERAGE GLUCOSE 117 GLYCATED HEMOGLOBIN A1C 5.7 <6.5 CBC 2020-03-16 HEMATOCRIT 51.8 42-54 HEMOGLOBIN 16.6 13.5-17.5 MCH 30.0 27-32 MCHC 32.0 32-37 MCV 93.5 79-98 MEAN PLATELET VOLUME 11.3 7-11 NRBC # AUTO 0.00 <0.1 NRBC % AUTO 0.0 <1 PLT COUNT 158 130-400 RBC 5.5 4.5-5.5 RDW 13.5 11-15 WBC 4.6 4.8-10.8 COMPREHENSIVE METABOLIC PANEL 2020-03-16 ALBUMIN 4.1 3.2-5.0 ALK PHOS 61 42-121 SGPT 50 10-60 ANION GAP 7 3-11 SGOT 40 10-42 BILI,TOTAL 0.6 0.0-1.4 BUN 17 5-25 CALCIUM 9.1 8.5-10.5 CHLORIDE 105 96-110 CO2 25 21-32 CREAT 1.11 0.7-1.3 GLOMERULAR FILTRATION RATE > 60 GLUCOSE 87 70-100 POTASSIUM 3.9 3.5-5.5 SODIUM 137 135-145 TOTAL PROTEIN 7.8 6.0-8.0 HCV VIRAL LOAD 2020-03-16 HCV VIRAL LOAD QUAL Not detected NOT DETECT. TREPONEMAL AB 2019-11-12 TREPONEMAL AB NEGATIVE NEGATIVE URINE CULTURE 2019-11-12 URINE CULTURE No growth CHLAMYDIA DNA URINE 2019-11-12 CHLAMYDIA DNA URINE POSITIVE NEGATIVE GC DNA URINE 2019-11-12 GC DNA URINE POSITIVE NEGATIVE HEPATITIS C VIRUS SCREEN 2019-11-12 HEPATITIS C VIRUS SCREEN POSITIVE NEGATIV E HEPATITIS B SURFACE ANTIBODY 2019-11-12 HEPATITIS B SURFACE ANTIBODY POSITIVE NEG ATIVE HIV 1 AND 2 ANTIBODY SCREEN 2019-11-12 HIV 1 AND 2 SCREEN NEGATIVE NEGATIVE UA WITH CULTURE IF INDICATED 2019-11-12 BACTERIA, URINE NEGATIVE NEGATIVE BILIRUBIN, URINE NEGATIVE NEGATIVE BLOOD, URINE TRACE NEGATIVE HYALINE CAST, URINE 4 0-3 EPITH CELLS, URINE 1 0-60 GLUCOSE, (UA) NEGATIVE NEGATIVE KETONE, URINE NEGATIVE NEGATIVE LEUKOCYTE ESTERASE, URINE LARGE NEGATI VE NITRITE, URINE NEGATIVE NEGATIVE PH, URINE 8.0 5.0-8.0 PROTEIN, URINE 30 <= TRACE RBC, URINE 11 0-4 SPECIFIC GRAVITY, URINE 1.022 1.003-1. 030 UROBILINOGEN, URINE 1.0 0.2-1.0 WBC, URINE 516 0-4 [place] Sleepiness Scale 2018-08-07 FERRITIN 2018-08-06 FERRITIN 35 26-388 HCV VIRAL LOAD 2018-08-06 HCV VIRAL LOAD LOG < 1.08 <1.08 HCV VIRAL LOAD QUAL Detected NOT DETECT. HCV VIRAL LOAD QUANT < 12 <12 TSH CASCADE 2018-08-06 TSH CASCADE 1.51 0.40-4.00 [email or web address] 2018-08-06 GLYCOHEMOGLOBIN PROFILE 2018-08-06 ESTIMATED AVERAGE GLUCOSE 114 GLYCATED HEMOGLOBIN A1C 5.6 <6.5 EKG CBC 2018-08-06 HEMATOCRIT 50.8 42-54 HEMOGLOBIN 17.1 13.5-17.5 MCH 30.1 27-32 MCHC 33.7 32-37 MCV 89.4 79-98 MEAN PLATELET VOLUME 10.2 7-11 NRBC # AUTO 0.00 <0.1 NRBC % AUTO 0.0 <1 PLT COUNT 208 130-400 RBC 5.7 4.5-5.5 RDW 13.3 11-15 WBC 6.4 4.8-10.8 COMPREHENSIVE METABOLIC PANEL 2018-08-06 ALBUMIN 3.9 3.2-5.0 ALK PHOS 52 42-121 SGPT 34 10-60 ANION GAP 7 3-11 SGOT 32 10-42 BILI,TOTAL 0.6 0.0-1.4 BUN 14 5-25 CALCIUM 8.9 8.5-10.5 CHLORIDE 105 96-110 CO2 28 21-32 CREAT 1.07 0.7-1.3 GLOMERULAR FILTRATION RATE > 60 GLUCOSE 86 70-100 POTASSIUM 4.4 3.5-5.5 SODIUM 140 133-145 TOTAL PROTEIN 7.7 6.0-8.0 PPD outside facility 2018-06-19 [email or web address] 2018-04-19 Depression Screen PHQ9 Annual Depression 2018-04 screen Score CBC (H/H, RBC, INDICES, WBC, PLT) 2018-04-17 WHITE BLOOD CELL COUNT 4.8 3.8-10.8 RED BLOOD CELL COUNT 4.91 4.20-5.80 HEMOGLOBIN 14.2 13.2-17.1 HEMATOCRIT 42.3 38.5-50.0 MCV 86.2 80.0-100.0 MCH 28.9 27.0-33.0 MCHC 33.6 32.0-36.0 RDW 14.8 11.0-15.0 PLATELET COUNT 179 140-400 MPV 9.7 7.5-12.5 HEMOGLOBIN A1c 2018-04-17 HEMOGLOBIN A1c 5.4 <5.7 COMPREHENSIVE METABOLIC PANEL-[facility] 2018-04-17 GLUCOSE 107 65-99 UREA NITROGEN (BUN) 14 7-25 CREATININE 1.07 0.60-1.35 eGFR NON-AFR. BAHRAINI 86 > OR = 60 eGFR 99 > OR = 60 BUN/CREATININE RATIO NOT APPLICABLE 6-22 SODIUM 139 135-146 POTASSIUM 4.2 3.5-5.3 CHLORIDE 106 98-110 CARBON DIOXIDE 22 20-32 CALCIUM 9.4 8.6-10.3 PROTEIN, TOTAL 7.4 6.1-8.1 ALBUMIN 4.4 3.6-5.1 GLOBULIN 3.0 1.9-3.7 ALBUMIN/GLOBULIN RATIO 1.5 1.0-2.5 BILIRUBIN, TOTAL 0.5 0.2-1.2 ALKALINE PHOSPHATASE 50 40-115 AST 33 10-40 ALT 43 9-46 SED RATE BY MODIFIED [place] 2018-04-17 SED RATE BY MODIFIED [place] TNP HEPATITIS C INFECTED PATIENT AUTOIMMUNE PANEL LO SCREEN, IFA Negative Negative MITOCHONDRIAL AB SCREEN Negative Negative ACTIN (SMOOTH MUSCLE) ANTIBODY (IGG) <20 <20 LKM-1 ANTIBODY (IGG) <=20.0 <=20.0 SOLUBLE LIVER ANTIGEN (SLA) AUTOANTIBODY <20.1 0.0-20.0 COMPREHENSIVE METABOLIC PANEL-[facility] 2017-11-13 GLUCOSE 93 65-99 UREA NITROGEN (BUN) 18 7-25 CREATININE 0.88 0.60-1.35 eGFR NON-AFR. BAHRAINI 107 > OR = 60 eGFR 124 > OR = 60 BUN/CREATININE RATIO NOT APPLICABLE 6-22 SODIUM 136 135-146 POTASSIUM 4.5 3.5-5.3 CHLORIDE 105 98-110 CARBON DIOXIDE 19 20-31 CALCIUM 9.0 8.6-10.3 PROTEIN, TOTAL 6.9 6.1-8.1 ALBUMIN 4.1 3.6-5.1 GLOBULIN 2.8 1.9-3.7 ALBUMIN/GLOBULIN RATIO 1.5 1.0-2.5 BILIRUBIN, TOTAL 0.4 0.2-1.2 ALKALINE PHOSPHATASE 75 40-115 AST 170 10-40 ALT 270 9-46 GGT 2017-11-13 GGT 21 3-95 PROTHROMBIN TIME-INR 2017-11-13 PT 11.0 9.0-11.5 INR 1.1 TISSUE TRANSGLUTAMINASE AB, IGA 2017-11-13 TISSUE TRANSGLUTAMINASE AB, IGA 1 DRUG TOX MONITORING FENTANYL, QN, URINE Fentanyl 0.5 <0.5 Norfentanyl 4.0 <0.5 COMMENT DRUG ABUSE PANEL 10-50 + ETHANOL, NO 2017-11-13 CONFIRM AMPHETAMINES (1000 ng/mL SCREEN) NEGATIVE BARBITURATES NEGATIVE BENZODIAZEPINES NEGATIVE COCAINE METABOLITES NEGATIVE MARIJUANA METABOLITES (50 ng/mL SCREEN) NEGATIVE METHADONE NEGATIVE METHAQUALONE NEGATIVE OPIATES NEGATIVE PHENCYCLIDINE NEGATIVE PROPOXYPHENE NEGATIVE ALCOHOL, ETHYL (U) NEGATIVE PLEASE NOTE: COMMENT Ultrasound : Abdomen PPD outside facility 2017-01-17 CBC (H/H, RBC, INDICES, WBC, PLT) 2017-06-07 WHITE BLOOD CELL COUNT 4.7 3.8-10.8 RED BLOOD CELL COUNT 5.11 4.20-5.80 HEMOGLOBIN 16.4 13.2-17.1 HEMATOCRIT 48.8 38.5-50.0 MCV 95.4 80.0-100.0 MCH 32.1 27.0-33.0 MCHC 33.7 32.0-36.0 RDW 15.5 11.0-15.0 PLATELET COUNT 209 140-400 MPV 8.5 7.5-12.5 HEMOGLOBIN A1c 2017-06-07 HEMOGLOBIN A1c 4.8 <5.7 FSH AND LH 2017-06-07 FSH <0.7 1.6-8.0 LH <0.2 1.5-9.3 HIV 1/2 ANTIGEN/ANTIBODY,FOURTH GENERATION 06-07 W/RFL HIV AG/AB, 4TH GEN NON-REACTIVE NON-REACTIVE LIPID PANEL 2017-06-07 TRIGLYCERIDES 55 <150 CHOLESTEROL, TOTAL 187 <200 HDL CHOLESTEROL 35 >40 LDL-CHOLESTEROL 137 CHOL/HDLC RATIO 5.3 <5.0 NON HDL CHOLESTEROL 152 <130 COMPREHENSIVE METABOLIC PANEL-[facility] 2017-06-07 GLUCOSE 105 65-99 UREA NITROGEN (BUN) 15 7-25 CREATININE 1.03 0.60-1.35 eGFR NON-AFR. BAHRAINI 90 > OR = 60 eGFR 105 > OR = 60 BUN/CREATININE RATIO NOT APPLICABLE 6-22 SODIUM 139 135-146 POTASSIUM 4.5 3.5-5.3 CHLORIDE 105 98-110 CARBON DIOXIDE 21 20-31 CALCIUM 9.4 8.6-10.3 PROTEIN, TOTAL 7.3 6.1-8.1 ALBUMIN 4.2 3.6-5.1 GLOBULIN 3.1 1.9-3.7 ALBUMIN/GLOBULIN RATIO 1.4 1.0-2.5 BILIRUBIN, TOTAL 0.8 0.2-1.2 ALKALINE PHOSPHATASE 75 40-115 AST 122 10-40 ALT 262 9-46 TESTOSTERONE, TOTAL, MALES (ADULT), [place] 2017-05-18 2 TESTOSTERONE, TOTAL, MALES (ADULT), [place] >3000 250-827 FERRITIN 2017-06-07 FERRITIN 104 20-380 PSA, TOTAL WITH REFLEX TO PSA, FREE 2017-06-07 PSA, TOTAL 1.1 < OR = 4.0 PROLACTIN 2017-06-07 PROLACTIN 4.0 2.0-18.0 THYROID CASCADING REFLEX 2017-06-07 TSH 1.83 0.40-4.50 HEPATITIS C VIRAL RNA, QN REAL TIME PCR W/REFLS HCV RNA, QUANTITATIVE REAL TIME PCR 5.72 HCV RNA, QUANTITATIVE REAL TIME PCR [id number] HEPATITIS C VIRAL RNA W/ RFL NS5a DRUG 2017-05-18 2 RESIST HEPATITIS C VIRAL RNA GENOTYPE, LIPA(R) 1a HEPATITIS C VIRAL RNA SUZY 1 NS5a DRUG 2017-05-18 2 RESIST HCV NS5a SUBTYPE 1a DACLATASVIR RESISTANCE NOT PREDICTED LEDIPASVIR RESISTANCE NOT PREDICTED OMBITASVIR RESISTANCE NOT PREDICTED ELBASVIR RESISTANCE NOT PREDICTED VELPATASVIR RESISTANCE NOT PREDICTED LIVER FIBROSIS, FIBROTEST ACTITEST PANEL FIBROSIS SCORE FIBROSIS STAGE FIBROSIS INTERPRETATION NECROINFLAMMAT ACT SCORE NECROINFLAMMAT ACT GRADE NECROINFLAMMAT INTERP REFERENCE ID FOOTNOTE TOTAL BILIRUBIN GGT ALT ALPHA 2 MACROGLOBULIN HAPTOGLOBIN APOLIPOPROTEIN A1 Depression Screen PHQ9 Annual Depression screen Score CBC with Diff - [facility] WBC RBC HGB HCT MCV MCH MCHC RDW PLT MPV neutrophils Abs Neutrophils Lymphs Monos EOS BASOS Comprehensive Metabolic Panel - [facility] 2016-11 Creat AST 78 ALT 172 Ca GFR Thyroid Panel-cascade TSH Free T4 T3 Hep B Surface Antibody (anti-HBs IgG) Hep B Surf Ab Hep B Surface Antigen (HBsAg) Hep B Suft Ag Hep B Core Antibody (anti-HBc IgG) Hep B Core Ab viral load HCV Treponemal AB with reflex to RPR Trep Ab Hep C Genotype - [facility] Lipid Profile (fasting or non) - [facility] Total Chol Total Chol Trig Trig HDL HDL LDL Calc LDL Calc LDL LDL Hep A Tot AB - [facility] FibroSURE -HepC - [facility] REASON FOR VISIT Insurance Providers Formerly [facility] Health Member Patient Patient Patient Patient Patient Subscriber Subscriber Subscriber Group Insurance Plan Plan Plan Plan ID Relationship Address Phone Name Date of ID Name Date of No Type Insurance Insurance Insurance Coverage to Subscriber Address Phone Name Dates [place] [phone] [place] fl[place] Alicia 1975 [id number] Medicaid [id number] Medicaid [facility] [address] [facility] C3 [id number] [employer] [phone] [employer] self Ravin 1975 100 [id number] [facility] [id number] [place] [id number] Plan [facility] [id number] [facility] [phone] [facility] flaca Alicia 1975 [id number] [facility] [id number] [facility] Plan [id number] MEDICAL (GENERAL) HISTORY Type Description Date Medical History R upper arm nerve pain from injury 2011 Medical History Hep C dx 06/2016. Treated by [facility] GI Dr Zapata finished 8 weeks of rx. 04/2018 Medical History HTN Medical History Substance use: heroin, testosterone, HGH 10/2017. OD 11/10/17 -> Narcan Surgical History No Surgical history information Hospitalization History [facility] ER cellulitis reevaluation Hospitalization History [facility] ER, chest pain, IVDU, discharged to home 07/05/2020 Hospitalization History [facility] ER, Opiate use, cocaine use, dis charged to home 07/11/2020
--- NOTE | 2022-04-07 20:47 | PC.NURSE ---
patient triaged. restless and fidgety during assessment. able to answer questions appropriately. family member at the bedside. patient eloped while RN was in another patient room. GITA made known.
--- NOTE | 2022-04-07 22:19 | MHC.RECOVSUP ---
? Reason for consult:OPI o? Current location:ED22H? o? Identified substance use concern:? -? Support ? Intervention: ? Plan: ? Additional information:PT left the ED on his own, [facility] didn't speak with this pt.
== END 2022-04-07 20:36 | disposition left against medical advice (07) ==
PROVIDERS: Emergency Provider Emergency Medicine
DX: F19.10 Other psychoactive substance abuse, uncomplicated (principal); F10.220 Alcohol dependence with intoxication, uncomplicated; Y90.9 Presence of alcohol in blood, level not specified; Z79.899 Other long term (current) drug therapy
CPT/HCPCS: 99282

== ENCOUNTER 2023-07-23 22:29 | Emergency (ER) | payer MEDICAID, SELFPAY ==
[2023-07-23 22:35] VITALS: BP 145/92; PULSE 69; RESP 18; TEMP 37.2; O2SAT 94; BMI 27.8
== END 2023-07-24 02:35 | disposition left against medical advice (07) ==
PROVIDERS: Emergency Provider Emergency Medicine
DX: M54.6 Pain in thoracic spine (principal)
CPT/HCPCS: 99281

== ENCOUNTER 2023-08-14 05:51 | Emergency (ER) | payer MEDICAID, SELFPAY ==
--- NOTE | ~2023-08-14 | XR_ITS ---
EXAMINATION: XR THORACIC SPINE CLINICAL INFORMATION: Thoracic pain, T1-T3 COMPARISON: None available. TECHNIQUE: 3 views of the thoracic spine were obtained. FINDINGS: There is no fracture or bone destruction seen and the vertebral alignment is normal. There is no disc space narrowing. There is no abnormality of the paraspinal soft tissues. XR/XR thoracic spine 3V IMPRESSION: 1. Unremarkable plain radiographs of the thoracic spine. If there is strong clinical concern of dorsal spine abnormality, MRI would be a more sensitive means of evaluation.
[2023-08-14 05:55] VITALS: BP 152/93; PULSE 59; RESP 14; TEMP 36.7; O2SAT 97; BMI 27.3
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
[2023-08-14 07:36] LABS: MANUAL DIFF FLAG NO
[2023-08-14 07:40] LABS: Basophils Percent Auto 0.9 % (0-2); Eosinophils Absolute Auto 0.1 X10*3/uL (0.0-0.4); Hematocrit 50.3 % (42.0-52.0); Imm Gran Abs Auto 0.01 X10*3/uL (0.00-0.03); Imm Gran Pct Auto 0.2 % (0.0-0.4); Lymphocytes Absolute Auto 2.2 X10*3/uL (1.2-4.9); Lymphocytes Percent Auto 47.7 % (20-40); Mean Corpuscular HGB Conc 33.8 g/dl (31.0-36.0); Mean Corpuscular Hemoglobin 30.7 pg (27.0-33.0); Mean Corpuscular Volume 90.8 fL (80.0-98.0); Mean Platelet Volume 9.1 fL (9.4-12.4); Monocytes Absolute Auto 0.5 X10*3/uL (0.1-1.2); Monocytes Percent Auto 11.1 % (2-11); Neutrophils Absolute Auto 1.7 x10*3/uL (2.0-8.3); Neutrophils Percent Auto 37.1 % (45-73); Platelet Count 209 X10*3/uL (160-400); Red Blood Count 5.54 X10*6/uL (4.60-5.80); Red Cell Distribution Width 13.3 % (11.0-16.0); White Blood Count 4.6 X10*3/uL (4.8-10.8)
[2023-08-14 07:51] LABS: Alanine Aminotransferase 38 U/L (0-40); Albumin Level 4.2 g/dL (3.5-5.0); Alkaline Phosphatase 61 U/L (39-117); Anion Gap 14 (12-20); Aspartate Amino Transferase 37 U/L (5-37); Bilirubin Total 0.6 mg/dL (0.0-1.0); Blood Urea Nitrogen 20 mg/dL (9-16); C Reactive Protein 0.12 mg/dL (< or = 0.50); Calcium 9.3 mg/dL (8.4-10.2); Carbon Dioxide 24 mmol/L (22-29); Chloride 104 mmol/L (96-108); Creatinine Clr Calc Pharmacy 85.7; Estimated Glomerular Filt Rate > 60; Glucose Random 94 mg/dL (60-115); Potassium 4.7 mmol/L (3.3-5.1); Sodium 137 mmol/L (135-145); Total Protein 7.5 g/dL (6.5-8.0)
[2023-08-14 08:20] LABS: Erythrocyte Sedimentation Rate 1 MM/HR (0-15)
[2023-08-14] MEDS: Ketorolac Tromethamine 30 MG/ML VIAL IM (08:21)
[2023-08-14 08:31] VITALS: BP 161/92; PULSE 65; RESP 15; TEMP 36.8; O2SAT 100
--- NOTE | 2023-08-14 08:47 | PC.NURSE ---
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
== END 2023-08-14 08:47 | disposition home or self-care (01) ==
PROVIDERS: Physician Assistant; Emergency Provider Emergency Medicine
DX: M54.6 Pain in thoracic spine (principal)
CPT/HCPCS: 36415; 72072; 80053; 85025; 85652; 86140; 96372; 99283; 99284; J1885

== ENCOUNTER 2023-08-29 15:50 | Outpatient (REF) | payer MEDICAID, SELFPAY ==
[2023-08-29 18:17] LABS: Alanine Aminotransferase 37 U/L (0-40); Albumin Level 4.3 g/dL (3.5-5.0); Alkaline Phosphatase 60 U/L (39-117); Aspartate Amino Transferase 34 U/L (5-37); Bilirubin Direct 0.2 mg/dL (0.0-0.5); Bilirubin Total 0.8 mg/dL (0.0-1.0); Total Protein 7.6 g/dL (6.5-8.0)
[2023-08-30 04:50] LABS: HIV AB/AG Nonreactive (Nonreactive); HIV Num 1 0.05 S/CO (0.00-0.99); ~HepC Num1 13.47 S/CO (0.00-0.79); ~Hepatitis C Antibody Reactive (Nonreactive)
[2023-09-02 13:49] LABS: HCV Log PCR <1.18 NOT DETECTED Log IU/mL (NOT DETECTED); HepC Viral Load <15 NOT DETECTED IU/mL (NOT DETECTED)
== END 2023-08-29 15:51 | disposition home or self-care (01) ==
LOC: HO.HHCL 15:50
PROVIDERS: Visit Provider Family Medicine
DX: Z11.4 Encounter for screening for human immunodeficiency virus [HIV] (principal); F11.20 Opioid dependence, uncomplicated
CPT/HCPCS: 36415; 80076; 86803; 87389; 87522

== ENCOUNTER 2024-10-22 15:42 | Inpatient (IN) | payer MEDICAID, SELFPAY ==
--- NOTE | ~2024-10-22 | XR_ITS ---
CLINICAL HISTORY: hand lac ?FB Radiographs of the left hand, 3 views Comparison: None Findings: No acute fracture or dislocation. 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 Ossific fragments of the wrist measuring up to 5 mm, chronic trauma versus degenerative. Moderate degenerative change. Bone mineralization is normal. Soft tissue swelling /laceration. No radiopaque foreign body. Impression: No radiopaque foreign body. This document has been electronically signed by: Deedee Corona MD on 10/22/2024 17:16:50
--- NOTE | ~2024-10-22 | CT_ITS ---
CLINICAL HISTORY: hand infection Exam: CT left hand with IV contrast Comparison: None. Findings: No foreign body in the field of view. Edema in the left thenar eminence deep soft tissues with an associated 6 mm peripherally enhancing fluid collection consistent with abscess. Overlying skin thickening and irregularity suggestive of laceration or wound. No erosive or destructive bone lesion. No acute fracture Impression: Edematous and inflammatory changes in the thenar eminence with an associated 6 mm peripherally enhancing collection consistent with abscess. This document has been electronically signed by: Jovanny Jeronimo MD on 10/22/2024 22:44:16
--- NOTE | 2024-10-22 15:47 | ED_ITS ---
HPI - Wound/Laceration General Chief Complaint: Wound/Laceration Stated Complaint: left hand laceration Time Seen by Provider: 10/22/24 18:54 Source: patient Mode of arrival: ambulatory Limitations: no limitations History of Present Illness ED Provider: DR. Dove HPI narrative: 49-year-old male [id number] he came in for evaluation of left hand 3-day-old laceration, States he accidentally drilled a metal bit into a piece of wood and into his L hand 3 days ago. Denies fever, or chills. Foul odor discharge from the incision is noticed during the exam. Related Data Home Medications ?Medication ?Instructions ?Recorded ?Confirmed buprenorphine 100 mg/0.5 mL 100 mg subcut QMONTH 10/22/24 solution,exten.rel.subcutaneous syringe (Sublocade) Previous Rx's ?Medication ?Instructions ?Recorded naloxone 4 mg/actuation nasal 4 mg intranasal Q2M PRN opioid 04/06/22 spray (Narcan) overdose #2 ea ketorolac 10 mg tablet 10 mg PO TID PRN pain 5 days #15 08/14/23 tabs prednisone 50 mg tablet 50 mg PO DAILY 5 days #5 tabs 08/14/23 Allergies Allergy/AdvReac Type Severity Reaction Status Date / Time No Known Allergies Allergy Verified 10/22/24 15:54 Review of Systems 2 Review of Systems: All other systems are reviewed and are negative Constitutional: Reports as per HPI and Reports no additional constitutional complaints Eyes: Reports as per HPI and Reports no additional eye complaints Reports system reviewed and no additional complaints, except as documented Cardiovascular: Reports as per HPI and Reports no additional cardiovascular complaints Respiratory: Reports as per HPI and Reports no additional respiratory complaints Gastrointestinal: Reports as per HPI and Reports no additional gastrointestinal complaints Genitourinary: Reports no additional female genitourinary complaints Musculoskeletal: Reports no additional musculoskeletal complaints Skin/Breast: Reports system reviewed and no additional complaints, except as docu Psychiatric: Reports no additional psychiatric complaints Endocrine: Reports no additional endocrine complaints Hematologic/Lymphatic: Reports no additional hematologic/lymphatic complaints Allergic/Immunologic: Reports no additional allergic/immunologic complaints Reports system reviewed and no additional complaints, except as documented and Reports Abnormal speech present PMFSH Social History Social History Smoked in Last 30 Days: No Use of substances other than those prescribed or required for medical reasons: No Advance Directives: No Advance Directives Information Provided: Yes Physical Exam 2 Vital Signs: Vital Signs: Last Vital Signs Temp 99.2 F 10/22/24 15:50 Pulse 102 H 10/22/24 19:45 Resp 18 10/22/24 19:45 BP 173/96 H 10/22/24 15:50 Pulse Ox 96 10/22/24 19:45 O2 Del Method Room Air 10/22/24 19:45 BMI result Body Mass Index 28.9 Vital signs have been reviewed and appear to be correct. Blood pressure elevated. Heart rate normal. Respiratory rate normal. Temperature normal. Oxygen saturation normal. Appearance: Alert. Oriented X3. No acute distress. Head: Normal external exam. Normocephalic. Atraumatic. No Juarez signs noted. No raccoon eyes noted Eyes: PERRLA. EOMI. Conjunctiva and sclera normal. Eyelids normal. ENT: TM's Normal. Pharynx normal. Uvula midline. Moist mucous membranes. No trismus noted. No drooling noted. No muffled voice noted. Neck: Normal inspection. Neck supple. FROM. No adenopathy. Thyroid Normal. No meningeal signs. No neck mass noted. CVS: Normal heart rate and rhythm. Heart sound normal. No murmurs noted. Pulses normal throughout. Respiratory: No respiratory distress. Painless inspiration. Breath sounds normal. No wheezes/rales/rhonchi noted. Chest nontender. No accessory muscle usage noted or decreased air movement noted. Abdomen: Soft and nontender. Bowel sounds normal in all 4 quadrants. No distention noted. No organomegaly noted. No visible injury noted. Back: No CVA tenderness. Full range of motion noted. Skin: Skin warm and dry. Normal skin color. Normal skin turgor. No rashes/lesions/lacerations noted. Extremities: 2 cm laceration (old) surrounded by area of redness, hotness, foul smell drainage from the incision, left radial artery is intact, cap refill on the left is less than 2 sec, able to flex the thumb with pain. Neuro: Oriented X 3. Cranial nerve exam: II-XII are grossly intact No motor deficit. No sensory deficit. Reflexes normal. Course Course Course Narrative: This is a rapid medical exam performed by C. Florencio, TWILL CUTTER: Additional HPI, ROS, PE not included below will be deferred to primary provider. Old injury to the left hand at work 3 days ago. PE: 3cm irregular laceration to palmar aspect below 1st digit. Mild edema, not actively bleeding, mild serous drainage. Limited ROM of thumb Plan: Labs, blood cultures, XR Reevaluation(s) Reevaluation #1: 49-year-old male [id number] came in after he injured left hand 3 days ago complicated with infection and cellulitis with possible tenosynovitis. Case discussed with from [facility] who recommended to admit the patient to the medical floor, IV antibiotic, keep the patient NPO after midnight. Patient is getting Zosyn, fluids patient just meet criteria for SIRS no sign of severe or septic shock. Time: 19:35 Medical Decision Making Differential Diagnosis Differential Diagnoses: The differential diagnosis associated with the presentation includes (Left hand abscess, left tenosynovitis, hand cellulitis.) Admission/Observation Consideration of admission/observation: Escalation of care including admission/observation considered Consult Healthcare Provider Management of the patient was discussed with: Hospitalist (Dr. Nath) and [facility] (Dr. Sprague) Lab Data MDM Lab Attestation statement: I reviewed the patient's lab results. 10/22/24 16:07 10/22/24 16:08 Labs: Lab Results 10/22/24 10/22/24 Range/Units 16:07 16:08 WBC 7.3 (4.8-10.8) X10*3/uL RBC 5.43 (4.60-5.80) X10*6/uL Hgb 17.3 (14.0-18.0) g/dl Hct 48.2 (42.0-52.0) % MCV 88.8 (80.0-98.0) fL MCH 31.9 (27.0-33.0) pg MCHC 35.9 (31.0-36.0) g/dl RDW 15.0 (11.0-16.0) % Plt Count 169 (160-400) X10*3/uL MPV 9.2 L (9.4-12.4) fL Immature Gran % (Auto) 0.4 (0.0-0.4) % Neut % (Auto) 81.3 H (45-73) % Lymph % (Auto) 9.8 L (20-40) % [place] % (Auto) 8.0 (2-11) % Eos % (Auto) 0.1 (0-4) % Baso % (Auto) 0.4 (0-2) % Lymph # (Auto) 0.7 L (1.2-4.9) X10*3/uL [place] # (Auto) 0.6 (0.1-1.2) X10*3/uL Eos # (Auto) 0.0 (0.0-0.4) X10*3/uL Baso # (Auto) 0.0 (0.0-0.2) X10*3/uL Abs Immat Gran (auto) 0.03 (0.00-0.03) X10*3/uL Absolute Neuts (auto) 6.0 (2.0-8.3) x10*3/uL Absolute Nucleated RBC 0.000 (0.0-0.012) X10*3/uL Nucleated RBC % (auto) 0.0 (0.0-0.2) /100WBC ESR 4 (0-15) MM/HR Sodium 137 (135-145) mmol/L Potassium 3.7 D (3.3-5.1) mmol/L Chloride 100 (96-108) mmol/L Carbon Dioxide 26 (22-29) mmol/L Anion Gap 15 (12-20) BUN 9 (9-16) mg/dL Creatinine 0.76 (0.5-1.4) mg/dL Estim Creat Clear Calc 126.9 Estimated GFR > 60 Random Glucose 104 (60-115) mg/dL Lactic Acid 1.7 (0.5-2.0) mmol/L Calcium 8.9 (8.4-10.2) mg/dL Total Bilirubin 1.8 H (0.0-1.0) mg/dL AST 88 H (5-37) U/L ALT 56 H (0-40) U/L Alkaline Phosphatase 63 (39-117) U/L C-Reactive Protein 5.78 H (< or = 0.50) mg/dL Total Protein 8.1 H (6.5-8.0) g/dL Albumin 4.2 (3.5-5.0) g/dL Independent Interpretation I performed an independent interpretation of an: Plain X-Ray (Left hand:No acute fracture or dislocation. 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 Ossific fragments of the wrist measuring up to 5 mm, chronic trauma versus degenerative. Moderate degenerative change. Bone mineralization is normal. Soft tissue swelling /laceration. No ) Radiology Impression Discussion of test interpretation with radiology: I have reviewed the radiologist's reading. Procedures Procedure Narrative Procedure Narrative: Ultrasound-guided IV. 18 gauge 1-3/4 inch IV placed in left upper extremity. Adequate blood return, flushes well secured with Tegaderm. Performed by Jena Olivier PA-C Discharge Plan Discharge Clinical Impression: Cellulitis of hand Patient Disposition: Admitted As Inpatient Print Language: Singaporean
[2024-10-22 15:50] VITALS: BP 173/96; PULSE 103; RESP 22; TEMP 37.3; O2SAT 95; BMI 28.9
[2024-10-22 16:13] LABS: MANUAL DIFF FLAG NO
[2024-10-22 16:14] LABS: Basophils Percent Auto 0.4 % (0-2); Eosinophils Percent Auto 0.1 % (0-4); Hematocrit 48.2 % (42.0-52.0); Hemoglobin 17.3 g/dl (14.0-18.0); Imm Gran Abs Auto 0.03 X10*3/uL (0.00-0.03); Imm Gran Pct Auto 0.4 % (0.0-0.4); Lymphocytes Absolute Auto 0.7 X10*3/uL (1.2-4.9); Lymphocytes Percent Auto 9.8 % (20-40); Mean Corpuscular HGB Conc 35.9 g/dl (31.0-36.0); Mean Corpuscular Hemoglobin 31.9 pg (27.0-33.0); Mean Corpuscular Volume 88.8 fL (80.0-98.0); Mean Platelet Volume 9.2 fL (9.4-12.4); Monocytes Absolute Auto 0.6 X10*3/uL (0.1-1.2); Neutrophils Percent Auto 81.3 % (45-73); Platelet Count 169 X10*3/uL (160-400); Red Blood Count 5.43 X10*6/uL (4.60-5.80); White Blood Count 7.3 X10*3/uL (4.8-10.8)
[2024-10-22 16:33] LABS: Alanine Aminotransferase 56 U/L (0-40); Albumin Level 4.2 g/dL (3.5-5.0); Alkaline Phosphatase 63 U/L (39-117); Anion Gap 15 (12-20); Aspartate Amino Transferase 88 U/L (5-37); Bilirubin Total 1.8 mg/dL (0.0-1.0); Blood Urea Nitrogen 9 mg/dL (9-16); C Reactive Protein 5.78 mg/dL (< or = 0.50); Calcium 8.9 mg/dL (8.4-10.2); Carbon Dioxide 26 mmol/L (22-29); Chloride 100 mmol/L (96-108); Creatinine Clr Calc Pharmacy 126.9; Estimated Glomerular Filt Rate > 60; Glucose Random 104 mg/dL (60-115); Potassium 3.7 mmol/L (3.3-5.1); Sodium 137 mmol/L (135-145); Total Protein 8.1 g/dL (6.5-8.0)
[2024-10-22 16:34] LABS: Lactic Acid 1.7 mmol/L (0.5-2.0)
[2024-10-22 16:52] LABS: Erythrocyte Sedimentation Rate 4 MM/HR (0-15)
--- NOTE | 2024-10-22 19:38 | PM.IMHP ---
History of Present Illness Date of Service: 10/22/24 Chief Complaint: Hand infection This has a 49-year-old male with pertinent history of polysubstance IV drug use disorder who presents to the emergency department for concerns of left hand infection. Patient states he previously used IV drugs but stopped using many years ago. He is on buprenorphine subcu injection every month. States that about 3 days prior to presentation he was working on a metal drill that went through the wood into his hand and injured his left palm. Patient did not take any oral antibiotics for it or did not apply any ointment. He wrapped up in gauze and went to his work. It was getting progressively worse and he decided to come to the ER. Did notice purulent drainage from it. No fever, chills, chest pain, palpitations, shortness of breath, abdominal pain, changes in urinary or bowel habits. He is able to move his wrist and make a fist. In the emergency department, patient was found to be tachycardic and tachypneic. Orthopedic surgery was consulted who requested admission to medicine team. Imaging with edematous and inflammatory changes in the thenar eminence consistent with abscess Review of Systems Constitutional: Constitutional: Reports no additional constitutional complaints Cardiovascular: Cardiovascular: Reports no additional cardiovascular complaints Respiratory: Respiratory: Reports no additional respiratory complaints Genitourinary: Genitourinary: Reports no additional male genitourinary complaints Musculoskeletal: Musculoskeletal: Reports no additional musculoskeletal complaints [facility] Medical History Polysubstance use disorder Pertinent family history: No family history of early CAD Social History Smoked in Last 30 Days: No Use of substances other than those prescribed or required for medical reasons: No Advance Directives: No Advance Directives Information Provided: Yes Meds Allergies Allergy/AdvReac Type Severity Reaction Status Date / Time No Known Allergies Allergy Verified 10/22/24 15:54 Active Medications: Current Medications Lactated Ringer's (Lr) 1,000 mls @ 999 mls/hr IV .Q1H1M [facility] Stop: 10/22/24 20:45 Home Medications ?Medication ?Instructions ?Recorded ?Confirmed ?Last Taken ?Type buprenorphine 100 mg/0.5 mL 100 mg subcut QMONTH 10/22/24 10/22/24 2 Weeks Ago History solution,exten.rel.subcutaneous ~10/08/24 syringe (Sublocade) Physical Exam Vital Signs and Narrative: Vital Signs: Last Vital Signs Temp 99.2 F 10/22/24 15:50 Pulse 103 H 10/22/24 15:50 Resp 22 H 10/22/24 15:50 BP 173/96 H 10/22/24 15:50 Pulse Ox 95 10/22/24 15:50 O2 Del Method Room Air 10/22/24 15:50 BMI result Body Mass Index 28.9 Middle-aged male lying in bed in no distress Neck supple, no JVD Regular rate and rhythm, S1-S2 heard Regular breath sounds bilaterally, no wheezing or crackles appreciated Abdomen soft nontender, no guarding, no rigidity Patient is awake, alert and oriented to self, place, time and person ; no focal motor deficit Psych: Normal mood Dorsal aspect of right hand with raised ulcerated lesion overlying the metacarpophalangeal joint of the thumb. Lesion is erythematous with irregular borders and is approximately 4-5 cm with exudative areas of necrosis and purulent drainage. Surrounding skin with induration and erythema. Patient has hand is edematous with associated tenderness (as pictured below) Skin: Other: Results Labs 10/22/24 16:07 10/22/24 16:08 Labs: Laboratory Results - last 24 hr 10/22/24 10/22/24 16:07 16:08 MCV 88.8 MCH 31.9 MCHC 35.9 RDW 15.0 Plt Count 169 MPV 9.2 L Immature Gran % (Auto) 0.4 Neut % (Auto) 81.3 H Lymph % (Auto) 9.8 L [place] % (Auto) 8.0 Eos % (Auto) 0.1 Baso % (Auto) 0.4 Lymph # (Auto) 0.7 L [place] # (Auto) 0.6 Eos # (Auto) 0.0 Baso # (Auto) 0.0 Abs Immat Gran (auto) 0.03 Absolute Neuts (auto) 6.0 Absolute Nucleated RBC 0.000 Nucleated RBC % (auto) 0.0 ESR 4 Anion Gap 15 Estim Creat Clear Calc 126.9 Estimated GFR > 60 Random Glucose 104 Lactic Acid 1.7 Calcium 8.9 Total Bilirubin 1.8 H AST 88 H ALT 56 H Alkaline Phosphatase 63 C-Reactive Protein 5.78 H Total Protein 8.1 H Albumin 4.2 Assessment and Plan (1) Abscess of hand: Status: Acute (2) Cellulitis of hand: Status: Acute Plan This has a 49-year-old male with pertinent history of polysubstance IV drug use disorder who presents to the emergency department for concerns of left hand infection. #. Sepsis due to left hand purulent cellulitis with abscess: Will admit patient with empiric IV antibiotics. Resuscitated with IV crystalloids. Lactic acid and blood culture obtained. Consulted Orthopedic surgery, appreciate assistance #. Opioid use disorder: On outpatient buprenorphine injection subcu every month DVT prophylaxis: Defer Lovenox until orthopedic surgery evaluation Full code Admit as inpatient and will require two night minimum hospital stay for IV antibiotics (as above), which is not possible in a lesser acute setting. Orthopedic surgery consult pending Quality Stroke Does the patient have a stroke diagnosis?: No VTE Prior VTE?: No VTE Risk Level:: Medical - moderate - high VTE Device Contraindication: N/A - Device Ordered VTE Drug Contraindication: Treatment Not Indicated
[2024-10-22 19:45] VITALS: PULSE 102; RESP 18; O2SAT 96
[2024-10-22] MEDS: Diphth,Pertus(ACell),Tet Adult 0.5 ML SYRINGE IM (20:16)
[2024-10-22] MEDS: Lactated Ringers 1,000 ML 999 ML IV (20:16)
[2024-10-22] MEDS: Piperacillin Sodium/Tazobactam 4.5 GM in 0.9 % Sodium Chloride 100 ML IV (20:17)
[2024-10-22] MEDS: vancomycin/NS 2,000 MG/500 ML PLAST..BAG 250 MG IV (20:36)
[2024-10-22 20:40] VITALS: BP 161/88; PULSE 92; RESP 18; O2SAT 96
--- NOTE | 2024-10-22 20:45 | PHA.MEDREC ---
Addendum entered by Ady Nunez [facility] 10/22/24 20:55: MED REC CHECKED BY [facility] Original Note: Pharmacy Consult ? Medication Reconciliation Pharmacy has completed the medication reconciliation. Spoke with patient and he confirmed he is only taking the Sublucade 100mg/0.5mL once a month and got it about 2 weeks ago he said and takes nothing else at this time for medications.
[2024-10-22] MEDS: iohexoL 350 MG/ML 100 ML INFUS..BTL IV (20:56)
--- NOTE | 2024-10-22 23:02 | MHC.EDTECH ---
this tech assumed care of the pt @[id number]
--- NOTE | 2024-10-22 23:35 | PC.NURSE ---
This technical document writer assumed care at 2300.
[2024-10-23] VITALS (9 sets, daily range): BP systolic 133–172; BP diastolic 81–106; PULSE 55–77; RESP 14–20; TEMP 36.5–37.2; O2SAT 95–98; BMI 29.4
[2024-10-23] MEDS: 0.9 % Sodium Chloride Flush 3 ML SYRINGE IVFLUSH ×3 (01:39→14:39)
[2024-10-23] MEDS: Piperacillin Sodium/Tazobactam 4.5 GM in 0.9 % Sodium Chloride 100 ML IV ×4 (01:41→19:38)
--- NOTE | 2024-10-23 06:34 | PC.NURSE ---
[place]quette Machine Operator assumed care of this patient at 04:00. Patient resting in bed during freelance writer's care. Breathing even and unlabored without distress. No acute complaints. Pt denies pain. Safety measures in place. Call daniels within reach.
[2024-10-23 07:09] LABS: MANUAL DIFF FLAG NO
[2024-10-23 07:11] LABS: Basophils Percent Auto 0.6 % (0-2); Eosinophils Absolute Auto 0.1 X10*3/uL (0.0-0.4); Eosinophils Percent Auto 1.4 % (0-4); Hematocrit 47.5 % (42.0-52.0); Hemoglobin 16.7 g/dl (14.0-18.0); Imm Gran Abs Auto 0.01 X10*3/uL (0.00-0.03); Imm Gran Pct Auto 0.2 % (0.0-0.4); Lymphocytes Absolute Auto 0.9 X10*3/uL (1.2-4.9); Lymphocytes Percent Auto 18.7 % (20-40); Mean Corpuscular HGB Conc 35.2 g/dl (31.0-36.0); Mean Corpuscular Hemoglobin 32.1 pg (27.0-33.0); Mean Corpuscular Volume 91.3 fL (80.0-98.0); Mean Platelet Volume 9.1 fL (9.4-12.4); Monocytes Absolute Auto 0.5 X10*3/uL (0.1-1.2); Monocytes Percent Auto 9.3 % (2-11); Neutrophils Absolute Auto 3.4 x10*3/uL (2.0-8.3); Neutrophils Percent Auto 69.8 % (45-73); Platelet Count 143 X10*3/uL (160-400); Red Cell Distribution Width 14.8 % (11.0-16.0); White Blood Count 4.9 X10*3/uL (4.8-10.8)
[2024-10-23 07:25] LABS: Anion Gap 13 (12-20); Blood Urea Nitrogen 8 mg/dL (9-16); Calcium 8.5 mg/dL (8.4-10.2); Carbon Dioxide 25 mmol/L (22-29); Chloride 100 mmol/L (96-108); Creatinine Clr Calc Pharmacy 123.7; Creatinine Clr Calc Pharmacy 125.3; Estimated Glomerular Filt Rate > 60; Glucose Random 85 mg/dL (60-115); Potassium 3.8 mmol/L (3.3-5.1); Sodium 134 mmol/L (135-145)
[2024-10-23] MEDS: vancomycin HCL 1,500 MG in 0.9 % Sodium Chloride 500 ML 333.33 MG IV ×2 (08:39→22:09)
--- NOTE | 2024-10-23 10:07 | PM.CNOR ---
History of Present Illness HPI Consult date: 10/23/24 Chief complaint: Hand Infection Narrative: 49-year-old male admitted to the hospital for evaluation of wound of left hand Patient reports that on approximately Saturday, he was using a drill to drill 3 2 x 4, when the drill slipped and drilled into his hand Patient reports that the wound has gotten larger, more swollen, and more painful Patient reports there has been significant drainage from this area Reports no difficulty with moving the hand No other acute complaints or concerns Review of Systems Review of Systems: Yes all other systems are reviewed and are negative PMFSH Past Medical History Medical History Polysubstance use disorder Social History Social History Smoked in Last 30 Days: No Use of substances other than those prescribed or required for medical reasons: No Advance Directives: No Advance Directives Information Provided: Yes Meds Allergies Allergy/AdvReac Type Severity Reaction Status Date / Time No Known Allergies Allergy Verified 10/22/24 15:54 Active Medications: Current Medications Acetaminophen (Acetaminophen 325 Mg Tablet) 650 mg PO Q6H PRN PRN Reason: Pain, Mild 1-3,fever,headache Calcium Carbonate (Calcium Carbonate 750 Mg Tab.Chew) 750 mg PO Q4H PRN PRN Reason: Heartburn Piperacillin Sod/Tazobactam (Sod 4.5 gm/ Sodium Chloride) 100 mls @ 200 mls/hr IV Q6H [facility] Last Admin: 10/23/24 08:33 Dose: 200 mls/hr Vancomycin HCl 1,500 mg/ (Sodium Chloride) 500 mls @ 333.333 mls/hr IV Q12H [facility] Last Admin: 10/23/24 08:39 Dose: 333.33 mls/hr Magnesium Hydroxide (Milk Of Magnesia 30 Ml Oral.Susp) 30 ml PO DAILY PRN PRN Reason: Constipation Melatonin (Melatonin 3 Mg Tablet) 6 mg PO BEDTIME PRN PRN Reason: Insomnia Ondansetron HCl (Ondansetron Hcl 4 Mg/2 Ml Vial) 4 mg IVPUSH Q8H PRN PRN Reason: Nausea and Vomiting Pharmacy Consult (Consult Rx Vancomycin Dosing) 1 each MISCELLANE DAILY PRN PRN Reason: Consult order Sodium Chloride (0.9 % Sodium Chloride Flush 3 Ml Syringe) 3 ml IVFLUSH QSHIFT [facility] Last Admin: 10/23/24 08:35 Dose: 3 ml Home Medications ?Medication ?Instructions ?Recorded ?Confirmed ?Last Taken ?Type buprenorphine 100 mg/0.5 mL 100 mg subcut QMONTH 10/22/24 10/22/24 2 Weeks Ago History solution,exten.rel.subcutaneous ~10/08/24 syringe (Sublocade) Physical Exam Vital Signs: Vital Signs: Last Vital Signs Temp 98.3 F 10/23/24 04:55 Pulse 55 10/23/24 08:56 Resp 16 10/23/24 08:56 BP 162/92 H 10/23/24 08:56 Pulse Ox 97 10/23/24 08:56 O2 Del Method Room Air 10/23/24 08:56 BMI result Body Mass Index 28.9 Extrem: Other: Patient is alert, oriented, and in no acute distress. Neuro: Normal sensation of the tips of all digits of the left hand at this time Vascular: Cap refill brisk Pain: Tenderness to palpation about the laceration site over the thenar eminence of the left hand No pain with range of motion ROM: Patient is able to make a closed fist and extend all digits of the left hand fully and without much difficulty Skin: There is noted to be an approximately 3-4 cm laceration with scant amounts of active drainage over the volar thenar eminence of the left hand There is also a small wound just distal to this wound consistent with potential drill injury No lacerations or abrasions. Psych: Appears grossly normal Affect normal Attitude cooperative Results Labs 10/23/24 07:01 10/23/24 07:01 Labs: Abnormal lab results 10/22/24 10/22/24 10/23/24 Range/Units 16:07 16:08 07:01 Plt Count 143 L (160-400) X10*3/uL MPV 9.2 L 9.1 L (9.4-12.4) fL Neut % (Auto) 81.3 H (45-73) % Lymph % (Auto) 9.8 L 18.7 L (20-40) % Lymph # (Auto) 0.7 L 0.9 L (1.2-4.9) X10*3/uL Sodium 134 L (135-145) mmol/L BUN 8 L (9-16) mg/dL Total Bilirubin 1.8 H (0.0-1.0) mg/dL AST 88 H (5-37) U/L ALT 56 H (0-40) U/L C-Reactive Protein 5.78 H (< or = 0.50) mg/dL Total Protein 8.1 H (6.5-8.0) g/dL H & H 10/22/24 10/23/24 Range/Units 16:07 07:01 Hgb 17.3 16.7 (14.0-18.0) g/dl Hct 48.2 47.5 (42.0-52.0) % All other labs normal. Diagnostic results Wrist/Hand x-ray: report reviewed and image reviewed Wrist/Hand CT: report reviewed and image reviewed Assessment and Plan (1) Abscess of hand: Status: Acute (2) Cellulitis of hand: Status: Acute Plan 1. Wound of left hand with cellulitis and concern for potential abscess Date of injury approximately 10/19/2024 Case was discussed with both Dr. Sprague and Dr. Gillis, and a collaborative treatment plan was formed: At this time, Dr. Gillis states that she does not feel any acute surgical intervention is warranted, and that patient should be encouraged to soak the hand in warm salt water/saline to encourage drainage while receiving IV antibiotics for the cellulitis If IV antibiotics generally appear to be effective and/or a visible abscess appears to forearm, then surgery will be discussed Patient should be soaking the hand and warm salt water at least 2 to 3 times a day, preferably a least once an hour Continue with IV antibiotics per Medicine Orthopedics will continue to follow Procedures Date of Service Date of Service: 10/23/24
--- NOTE | 2024-10-23 12:04 | MHC.CM.PN ---
FROM HOME W/ FRIEND INDP W/ CARE NO SERVICES NO DME PCP- [facility] DECLINED HCP DCP- [facility]/ [facility]- HOME SELF CARE.
--- NOTE | 2024-10-23 15:31 | HO.PM.IMPN ---
Subjective Subjective Date of Service: 10/23/24 Interval History: No acute issues overnight. Remains afebrile Review of Systems Denies chest pain Denies shortness of breath Denies nausea vomiting diarrhea Denies fever chills Physical Exam Vital Signs: Vital Signs: Last Vital Signs Temp 97.9 F 10/23/24 12:00 Pulse 58 10/23/24 12:00 Resp 18 10/23/24 12:00 BP 164/97 H 10/23/24 12:00 Pulse Ox 97 10/23/24 12:00 O2 Del Method Room Air 10/23/24 12:00 BMI result Body Mass Index 29.4 Const: Other: Awake alert oriented x3 in no acute distress Resp: Other: Clear to auscultation bilaterally no rales rhonchi or wheezes Cardio: Other: No S4; positive S1-S2; no S3 murmurs rubs or gallops GI: Other: Soft nontender nondistended normoactive bowel sounds Extrem: Other: Dressing left hand dry and intact. See admission photos Objective Data Active Medications Acetaminophen (Acetaminophen 325 Mg Tablet) 650 mg PO Q6H PRN PRN Reason: Pain, Mild 1-3,fever,headache Calcium Carbonate (Calcium Carbonate 750 Mg Tab.Chew) 750 mg PO Q4H PRN PRN Reason: Heartburn Piperacillin Sod/Tazobactam (Sod 4.5 gm/ Sodium Chloride) 100 mls @ 200 mls/hr IV Q6H COUNT INCLUDES THE [facility] Last Infusion: 10/23/24 14:20 Dose: Infused Documented By: LUDY Vancomycin HCl 1,500 mg/ (Sodium Chloride) 500 mls @ 333.333 mls/hr IV Q12H COUNT INCLUDES THE [facility] Last Infusion: 10/23/24 11:41 Dose: Infused Documented By: LUDY Magnesium Hydroxide (Milk Of Magnesia 30 Ml Oral.Susp) 30 ml PO DAILY PRN PRN Reason: Constipation Melatonin (Melatonin 3 Mg Tablet) 6 mg PO BEDTIME PRN PRN Reason: Insomnia Ondansetron HCl (Ondansetron Hcl 4 Mg/2 Ml Vial) 4 mg IVPUSH Q8H PRN PRN Reason: Nausea and Vomiting Pharmacy Consult (Consult Rx Vancomycin Dosing) 1 each MISCELLANE DAILY PRN PRN Reason: Consult order Sodium Chloride (0.9 % Sodium Chloride Flush 3 Ml Syringe) 3 ml IVFLUSH QSHIFT COUNT INCLUDES THE [facility] Last Admin: 10/23/24 14:39 Dose: 3 ml Documented By: LUDY Labs 10/23/24 07:01 10/23/24 07:01 Labs: Laboratory Results - last 24 hr 10/22/24 10/22/24 10/23/24 16:07 16:08 07:01 MCV 88.8 91.3 MCH 31.9 32.1 MCHC 35.9 35.2 RDW 15.0 14.8 Plt Count 169 143 L MPV 9.2 L 9.1 L Immature Gran % (Auto) 0.4 0.2 Neut % (Auto) 81.3 H 69.8 Lymph % (Auto) 9.8 L 18.7 L [place] % (Auto) 8.0 9.3 Eos % (Auto) 0.1 1.4 Baso % (Auto) 0.4 0.6 Lymph # (Auto) 0.7 L 0.9 L [place] # (Auto) 0.6 0.5 Eos # (Auto) 0.0 0.1 Baso # (Auto) 0.0 0.0 Abs Immat Gran (auto) 0.03 0.01 Absolute Neuts (auto) 6.0 3.4 Absolute Nucleated RBC 0.000 0.000 Nucleated RBC % (auto) 0.0 0.0 ESR 4 Anion Gap 15 13 Estim Creat Clear Calc 126.9 125.3 Estimated GFR > 60 Random Glucose 104 Lactic Acid 1.7 Calcium 8.9 Total Bilirubin 1.8 H AST 88 H ALT 56 H Alkaline Phosphatase 63 C-Reactive Protein 5.78 H Total Protein 8.1 H Albumin 4.2 10/23/24 10/23/24 07:01 07:01 MCV MCH MCHC RDW Plt Count MPV Immature Gran % (Auto) Neut % (Auto) Lymph % (Auto) [place] % (Auto) Eos % (Auto) Baso % (Auto) Lymph # (Auto) [place] # (Auto) Eos # (Auto) Baso # (Auto) Abs Immat Gran (auto) Absolute Neuts (auto) Absolute Nucleated RBC Nucleated RBC % (auto) ESR Anion Gap Estim Creat Clear Calc 123.7 Estimated GFR > 60 > 60 Random Glucose 85 Lactic Acid Calcium 8.5 Total Bilirubin AST ALT Alkaline Phosphatase C-Reactive Protein Total Protein Albumin Assessment and Plan (1) Cellulitis of hand: Status: Acute (2) Abscess of hand: Status: Acute Plan This has a 49-year-old male with pertinent history of polysubstance IV drug use disorder who presents to the emergency department for concerns of left hand infection. 1.Sepsis due to left hand purulent cellulitis -Vanco/Zosyn(2) -appreciate orthopedic follow up 2.Opioid use disorder - buprenorphine injection subcu every month Ambulatory Full code Requires ongoing hospitalization for antibiotics for cellulitis of FC Quality Stroke Does the patient have a stroke diagnosis?: No VTE Prior VTE?: No VTE Risk Level:: Medical - moderate - high VTE Device Contraindication: N/A - Device Ordered VTE Drug Contraindication: Treatment Not Indicated
--- NOTE | 2024-10-23 18:38 | PC.NURSE ---
Patients left hand was soaked in warmed normal saline for 1 hours at 15:00.
[2024-10-24] MEDS: Piperacillin Sodium/Tazobactam 4.5 GM in 0.9 % Sodium Chloride 100 ML IV ×4 (02:28→19:32)
[2024-10-24 03:18] VITALS: BP 136/86; PULSE 60; RESP 20; TEMP 36.7; O2SAT 96
[2024-10-24 07:23] LABS: Creatinine Clr Calc Pharmacy 117.1; Estimated Glomerular Filt Rate > 60; Vancomycin Random 9.2 mcg/mL (15-20)
--- NOTE | 2024-10-24 07:38 | HE.PHANOTE ---
RE VANCO: TROUGH AND AUC LOW. WILL INCREASE DOSE TO 1250 Q8, CONTINUE DAILY RENAL FUNCTION MONITORING. WATCH Scr SLIGHTLY TRENDING UP.
[2024-10-24 08:00] VITALS: BP 137/92; PULSE 59; RESP 16; TEMP 36.7; O2SAT 95
[2024-10-24] MEDS: 0.9 % Sodium Chloride Flush 3 ML SYRINGE IVFLUSH ×2 (08:20→16:15)
[2024-10-24] MEDS: vancomycin HCL 1,250 MG in 0.9 % Sodium Chloride 250 ML 166.67 MG IV ×2 (09:03→16:10)
[2024-10-24 10:59] VITALS: BP 153/91; PULSE 75; RESP 16; TEMP 36.7; O2SAT 97
--- NOTE | 2024-10-24 12:19 | PM.PNORT ---
Subjective Subjective Date of Service: 10/24/24 Interval history: Patient is a 49-year-old male admitted to the hospital for infected wound of left hand Patient reports pain has improved significantly Has been performing warm water soaks with good results Patient reports no further redness around the wound site Reports full and intact range of motion of the left hand, including the left thumb Physical Exam Vital Signs: Vital Signs: Last Vital Signs Temp 98.1 F 10/24/24 10:59 Pulse 75 10/24/24 10:59 Resp 16 10/24/24 10:59 BP 153/91 H 10/24/24 10:59 Pulse Ox 97 10/24/24 10:59 O2 Del Method Room Air 10/24/24 10:59 BMI result Body Mass Index 29.4 Extrem: Other: Patient is alert, oriented, and in no acute distress. Neuro: Normal sensation of the tips of all digits of the left hand at this time Vascular: Cap refill brisk Pain: No further Tenderness to palpation about the laceration site over the thenar eminence of the left hand No pain with range of motion ROM: Patient is able to make a closed fist and extend all digits of the left hand fully and without much difficulty Skin: There is noted to be an approximately 3-4 cm laceration with no active drainage this time There is also a small wound just distal to this wound consistent with potential drill injury Psych: Appears grossly normal Affect normal Attitude cooperative Procedures Date of Service Date of Service: 10/24/24 Progress Note: A&P Assessment and plan (1) Cellulitis of hand: Status: Acute Plan 1. Laceration and infection of the left hand Patient appears to be improving significantly with IV antibiotics and warm water soaks No acute surgical intervention is indicated at this time Continue with warm water soaks Continue with IV antibiotics per Medicine Follow-up in our office this coming week If patient is discharged, she will be on p.o. antibiotics Continue with all other recommendations per Medicine Thank you for allowing us to aid in the care of this patient Time Spent With Patient Time: Total time managing care of this patient today ____ minutes. Quality Stroke Does the patient have a stroke diagnosis?: No VTE Prior VTE?: No VTE Risk Level:: Medical - moderate - high VTE Device Contraindication: N/A - Device Ordered VTE Drug Contraindication: Treatment Not Indicated
--- NOTE | 2024-10-24 13:12 | HO.PM.IMPN ---
Subjective Subjective Date of Service: 10/24/24 Interval History: Continues to do well with therapies including soaking. Afebrile overnight Review of Systems Denies chest pain Denies shortness of breath Denies nausea vomiting diarrhea Denies fever chills Physical Exam Vital Signs: Vital Signs: Last Vital Signs Temp 98.1 F 10/24/24 10:59 Pulse 75 10/24/24 10:59 Resp 16 10/24/24 10:59 BP 153/91 H 10/24/24 10:59 Pulse Ox 97 10/24/24 10:59 O2 Del Method Room Air 10/24/24 10:59 BMI result Body Mass Index 29.4 Const: Other: Awake alert oriented x3 in no acute distress Resp: Other: Clear to auscultation bilaterally no rales rhonchi or wheezes Cardio: Other: No S4; positive S1-S2; no S3 murmurs rubs or gallops GI: Other: Soft nontender nondistended normoactive bowel sounds Extrem: Other: Dressing left hand dry and intact. See admission photos Objective Data Active Medications Acetaminophen (Acetaminophen 325 Mg Tablet) 650 mg PO Q6H PRN PRN Reason: Pain, Mild 1-3,fever,headache Calcium Carbonate (Calcium Carbonate 750 Mg Tab.Chew) 750 mg PO Q4H PRN PRN Reason: Heartburn Piperacillin Sod/Tazobactam (Sod 4.5 gm/ Sodium Chloride) 100 mls @ 200 mls/hr IV Q6H [facility] Last Infusion: 10/24/24 08:51 Dose: Infused Documented By: KHRIS Vancomycin HCl 1,250 mg/ (Sodium Chloride) 250 mls @ 166.667 mls/hr IV Q8H [facility] Last Infusion: 10/24/24 10:33 Dose: Infused Documented By: KHRIS Magnesium Hydroxide (Milk Of Magnesia 30 Ml Oral.Susp) 30 ml PO DAILY PRN PRN Reason: Constipation Melatonin (Melatonin 3 Mg Tablet) 6 mg PO BEDTIME PRN PRN Reason: Insomnia Ondansetron HCl (Ondansetron Hcl 4 Mg/2 Ml Vial) 4 mg IVPUSH Q8H PRN PRN Reason: Nausea and Vomiting Pharmacy Consult (Consult Rx Vancomycin Dosing) 1 each MISCELLANE DAILY PRN PRN Reason: Consult order Sodium Chloride (0.9 % Sodium Chloride Flush 3 Ml Syringe) 3 ml IVFLUSH QSHIFT [facility] Last Admin: 10/24/24 08:20 Dose: 3 ml Documented By: KHRIS Labs 10/23/24 07:01 10/24/24 06:58 Labs: Laboratory Results - last 24 hr 10/24/24 06:58 Hold Purple Top SEE NOTE Estim Creat Clear Calc 117.1 Estimated GFR > 60 Random Vancomycin 9.2 L Microbiology Microbiology Results: Microbiology 10/22/24 19:29 Blood Culture - Preliminary Blood - Venous No growth after 24 hours. 10/22/24 16:07 Blood Culture - Preliminary Blood - Venous No growth after 24 hours. Assessment and Plan (1) Cellulitis of hand: Status: Acute Plan This has a 49-year-old male with pertinent history of polysubstance IV drug use disorder who presents to the emergency department for concerns of left hand infection. 1.Sepsis due to left hand purulent cellulitis -Vanco/Zosyn(3) -appreciate orthopedic follow up -DC when blood cultures negative times 48 hours 2.Opioid use disorder - buprenorphine injection subcu every month Ambulatory Full code Requires ongoing hospitalization for antibiotics for cellulitis of Quality Stroke Does the patient have a stroke diagnosis?: No VTE Prior VTE?: No VTE Risk Level:: Medical - moderate - high VTE Device Contraindication: N/A - Device Ordered VTE Drug Contraindication: Treatment Not Indicated
[2024-10-24 15:45] VITALS: BP 131/85; PULSE 70; RESP 18; TEMP 36.4; O2SAT 97
[2024-10-24 19:05] VITALS: BP 167/93; PULSE 77; RESP 18; TEMP 36.5; O2SAT 98
[2024-10-24 23:32] VITALS: BP 157/86; PULSE 69; RESP 18; TEMP 36.5; O2SAT 96
[2024-10-25] MEDS: vancomycin HCL 1,250 MG in 0.9 % Sodium Chloride 250 ML 166.67 MG IV ×2 (00:15→08:33)
[2024-10-25] MEDS: Piperacillin Sodium/Tazobactam 4.5 GM in 0.9 % Sodium Chloride 100 ML IV ×2 (01:49→07:55)
[2024-10-25 03:32] VITALS: BP 148/93; PULSE 76; RESP 18; TEMP 36.4
[2024-10-25 06:09] LABS: MANUAL DIFF FLAG NO
[2024-10-25 06:25] LABS: Vancomycin Random 15.3 mcg/mL (15-20)
[2024-10-25 06:26] LABS: Basophils Absolute Auto 0.1 X10*3/uL (0.0-0.2); Basophils Percent Auto 1.5 % (0-2); Creatinine Clr Calc Pharmacy 123.1; Eosinophils Absolute Auto 0.1 X10*3/uL (0.0-0.4); Eosinophils Percent Auto 2.5 % (0-4); Estimated Glomerular Filt Rate > 60; Hematocrit 46.6 % (42.0-52.0); Hemoglobin 16.3 g/dl (14.0-18.0); Imm Gran Abs Auto 0.03 X10*3/uL (0.00-0.03); Imm Gran Pct Auto 0.7 % (0.0-0.4); Lymphocytes Absolute Auto 1.7 X10*3/uL (1.2-4.9); Lymphocytes Percent Auto 41.7 % (20-40); Mean Corpuscular Hemoglobin 31.9 pg (27.0-33.0); Mean Corpuscular Volume 91.2 fL (80.0-98.0); Mean Platelet Volume 9.5 fL (9.4-12.4); Monocytes Absolute Auto 0.4 X10*3/uL (0.1-1.2); Monocytes Percent Auto 10.4 % (2-11); Neutrophils Absolute Auto 1.7 x10*3/uL (2.0-8.3); Neutrophils Percent Auto 43.2 % (45-73); Platelet Count 168 X10*3/uL (160-400); Red Blood Count 5.11 X10*6/uL (4.60-5.80); Red Cell Distribution Width 14.5 % (11.0-16.0)
[2024-10-25 07:32] VITALS: BP 146/94; PULSE 63; RESP 16; TEMP 36.8; O2SAT 95
[2024-10-25] MEDS: 0.9 % Sodium Chloride Flush 3 ML SYRINGE IVFLUSH (07:56)
--- NOTE | 2024-10-25 09:25 | PM.DS ---
DS: Providers Provider Date of Service: 10/25/24 Date of admission: 10/22/24 19:37 Date of discharge: 10/25/24 Primary care physician: Unknown Physician Consults: 10/22/24 20:27 Consult to Orthopedics Routine Consulting Provider: [facility] Reason for consultation: hand infection DS: Diagnosis Discharge Diagnosis (1) Cellulitis of hand: Status: Acute DS: Summary Hospital Course Hospital Course: 49-year-old male with pertinent history of polysubstance IV drug use disorder who presents to the emergency department for concerns of left hand infection. Patient states he previously used IV drugs but stopped using many years ago. He is on buprenorphine subcu injection every month. States that about 3 days prior to presentation he was working on a metal drill that went through the wood into his hand and injured his left palm. Patient did not take any oral antibiotics for it or did not apply any ointment. He wrapped up in gauze and went to his work. It was getting progressively worse and he decided to come to the ER. Did notice purulent drainage from it. No fever, chills, chest pain, palpitations, shortness of breath, abdominal pain, changes in urinary or bowel habits. He is able to move his wrist and make a fist. Hospital Course Patient admitted to general medical floor and maintained on vancomycin and Zosyn. Over the next 48 hours, patient increased range of motion to hand without pain. Blood cultures has been negative times 48 hours. At this time he is medically acceptable to be discharged home. 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 He is instructed to keep a clean dry dressing on it and a glove while at work and to soak it before work and after work and then leave open to air overnight. He will follow up with ortho; they will call him with the appointment Time Attestation Discharge Coordination Time (in mins): 35 Quality: Safe Use of Opioids Does Pt have an Active Cancer Diagnosis on the Problem List?: No Quality: Stroke Does the patient have a stroke diagnosis?: No Physical Exam Vital Signs: Vital Signs: Last Vital Signs Temp 98.2 F 10/25/24 07:32 Pulse 63 10/25/24 07:32 Resp 16 10/25/24 07:32 BP 146/94 H 10/25/24 07:32 Pulse Ox 95 10/25/24 07:32 O2 Del Method Room Air 10/25/24 07:32 BMI result Body Mass Index 29.4 Const: Other: Awake alert oriented x3 in no acute distress Resp: Other: Clear to auscultation bilaterally no rales rhonchi or wheezes Cardio: Other: No S4; positive S1-S2; no S3 murmurs rubs or gallops GI: Other: Soft nontender nondistended normoactive bowel sounds Extrem: Other: Dressing left hand dry and intact. See admission photos DS: Data Data Completed and Pending Labs on day of discharge: Laboratory Results - last 24 hr 10/25/24 06:02 WBC 4.0 L RBC 5.11 Hgb 16.3 Hct 46.6 MCV 91.2 MCH 31.9 MCHC 35.0 RDW 14.5 Plt Count 168 MPV 9.5 Immature Gran % (Auto) 0.7 H Neut % (Auto) 43.2 L Lymph % (Auto) 41.7 H [place] % (Auto) 10.4 Eos % (Auto) 2.5 Baso % (Auto) 1.5 Lymph # (Auto) 1.7 [place] # (Auto) 0.4 Eos # (Auto) 0.1 Baso # (Auto) 0.1 Abs Immat Gran (auto) 0.03 Absolute Neuts (auto) 1.7 L Absolute Nucleated RBC 0.000 Nucleated RBC % (auto) 0.0 Creatinine 0.79 Estim Creat Clear Calc 123.1 Estimated GFR > 60 Random Vancomycin 15.3 Preliminary micro results at discharge 10/22/24 19:29 Blood Culture - Preliminary Blood - Venous No growth after 48 hours. 10/22/24 16:07 Blood Culture - Preliminary Blood - Venous No growth after 48 hours. Discharge Plan Discharge Anticipated Discharge Date/Time: 10/25/24 09:21 Patient Disposition: Home, Self-Care Discharge Diagnosis: Cellulitis left hand Referrals: Physician,Unknown J [Primary Care Provider] - 1 Week Discharge Medications: New amoxicillin-pot clavulanate 875-125 mg tablet 1 tab PO BID Qty: 20 0RF Continued Sublocade 100 mg/0.5 mL solution, extended rel syringe 100 mg subcut QMONTH Discharge Orders: Discharge Order (Routine); Ordered 10/25/24 Ordered By: Kwaku Pierre Diet: Advance to usual diet Activity on Discharge: As tolerated Stand Alone Forms: Patient Portal Discharge page Print Language: Turkish Care Plan Goals: Resume all medicines as taken prior to the hospital. Augmentin 875 twice a day for 10 days has been added to your regimen. Complete this antibiotic Health Concerns: Follow up with Orthopedics. Office will reach out with an appointment Plan of Treatment: Keep covered at all times. Soak in warm water or saline twice daily Assessment: See discharge summary
--- NOTE | 2024-10-25 10:20 | PC.NURSE ---
IV Infiltrated per primary rn upon d/c. Warm packs given for d/c. Pt wants to leave home.
--- NOTE | 2024-10-25 10:42 | MHC.CM.PN ---
PT WILL DC HOME TODAY WITH NO SERVICES VIA PRIVATE TRANSPORT
== END 2024-10-25 10:20 | disposition home or self-care (01) | DRG 720 ==
LOC: HO.ED 19:34 → HO.EDOVER 20:15 → HO.S3 10-23 11:06
PROVIDERS: Registered Nurse Emergency; Admitting Provider Student in an Organized Health Care Education/Training Program; Emergency Provider Emergency Medicine; Visit Provider Hospitalist
DX: A41.9 Sepsis, unspecified organism (principal); F11.20 Opioid dependence, uncomplicated; L02.512 Cutaneous abscess of left hand; L03.114 Cellulitis of left upper limb; S61.432A Puncture wound without foreign body of left hand, initial encounter; W29.8XXA Contact with other powered hand tools and household machinery, initial encounter; F17.210 Nicotine dependence, cigarettes, uncomplicated; Z71.6 Tobacco abuse counseling
CPT/HCPCS: 36415; 73130; 73201; 80048; 80053; 80202; 82565; 83605; 85025; 85652; 86140; 87040; 90715; 99285; J2543; J3370; J3371; J7120; Q9967

== ENCOUNTER → 2024-10-22 15:50 | Outpatient (BNV) | payer MEDICAID, SELFPAY | PROVIDERS: Visit Provider Radiology Diagnostic Radiology | DX: S61.412A Laceration without foreign body of left hand, initial encounter (principal) | CPT/HCPCS: 73130 ==

== ENCOUNTER → 2024-10-22 19:37 | Outpatient (BNV) | payer MEDICAID, SELFPAY | PROVIDERS: Admitting Provider Student in an Organized Health Care Education/Training Program; Emergency Provider Emergency Medicine; Visit Provider Student in an Organized Health Care Education/Training Program | DX: L03.119 Cellulitis of unspecified part of limb (principal) | CPT/HCPCS: 99239 ==

== ENCOUNTER → 2024-10-22 19:37 | Outpatient (BNV) | payer MEDICAID, SELFPAY | PROVIDERS: Admitting Provider Student in an Organized Health Care Education/Training Program; Emergency Provider Emergency Medicine | DX: L02.519 Cutaneous abscess of unspecified hand (principal); L03.119 Cellulitis of unspecified part of limb | CPT/HCPCS: 99222; 99232 ==